=== PATIENT | male | born 1960 | race Caucasian/White ===

== ENCOUNTER → 2020-02-28 13:28 | Outpatient (REF) | payer OTHER, SELFPAY | LOC: HO.SL 13:28 | PROVIDERS: Visit Provider Internal Medicine | DX: G47.33 Obstructive sleep apnea (adult) (pediatric) (principal) ==

== ENCOUNTER → 2020-03-20 13:39 | Outpatient (REF) | payer OTHER, SELFPAY | LOC: HO.SL 13:39 | PROVIDERS: Visit Provider Internal Medicine | DX: Z13.89 Encounter for screening for other disorder (principal) ==

== ENCOUNTER → 2020-07-19 13:37 | Outpatient (REF) | payer OTHER, SELFPAY | LOC: HO.SL 13:37 | PROVIDERS: Visit Provider Internal Medicine | DX: G47.33 Obstructive sleep apnea (adult) (pediatric) (principal) | CPT/HCPCS: 95806 ==

== ENCOUNTER → 2020-08-30 15:52 | Outpatient (BNVA) | payer OTHER, SELFPAY | PROVIDERS: PCP Registered Nurse; Visit Provider Internal Medicine | DX: J45.909 Unspecified asthma, uncomplicated (principal); G47.33 Obstructive sleep apnea (adult) (pediatric); Z99.89 Dependence on other enabling machines and devices; Z79.899 Other long term (current) drug therapy | CPT/HCPCS: 99212 ==

== ENCOUNTER 2021-02-05 10:21 | Outpatient (REF) | payer OTHER, SELFPAY ==
--- NOTE | 2021-02-05 15:25 | MHC.AU.ANR ---
Adult Audiological Evaluation Date of Visit: 02/05/21 Reason for Appointment: Audiological evaluation due to concern for decreased hearing. Mr. Walsh reports difficulties hearing and understanding speech. He notes that he has difficulty hearing himself so he speaks very loudly, which bothers others who feel he is yelling. Does patient feel they have a hearing loss?: Yes If Yes, Which Ear?: Both Ears Has hearing been tested previously?: Yes Previous Hearing Test Results: Patient reports that he had a hearing evaluation ~4 years ago and was told his hearing is normal. Hearing Handicap Inventory: HHIE SCORE: 20 Based on HHIE score, patient has: Mild to moderate perceived hearing handicap Medical History: Medical History: Blood Disorders, High Blood Pressure Medical History (Other): Breathing difficulties, lower back pain, dermatitis, allergic rhinitis, asthma Medication List: Sennalax-S 8.6 mg-50 mg, Docusate sodium 100 mg, Betamethasone valerate 0.1%, Sarna original 0.5%, Nitrofurantoin monohyd/m-cryst 100 mg, Cialis 5 mg, Ketoconazole 2%, ProNeb Ultra II, albuterol sulfate 2.5 mg/3 mL, Shingrix 50 mcg/0.5 mL, ibuprofen 600 mg, aspirin 81 mg, Proair HFA 90 mcg, Toprol XL 25 mg, Multivitamin 50 plus, Singulair 10 mg, Cetirizine HCl 10 mg, atorvastatin calcium 10 mg, melatonin 3 mg, amlodipine besylate 10 mg, hydrocortisone 1%, Flovent HFA 110 mcg Otoscopy: Right Ear: Unremarkable Left Ear: Unremarkable Tympanometry: Tympanometry performed due to: To assess integrity of the middle ear system Right Ear: Normal Middle Ear System (Type A) Left Ear: Normal Middle Ear System (Type A) Hearing Evaluation: Transducer(s) Used: Insert Earphones, Bone Conduction Method: Conventional Audiometry Stimuli Used: Pure Tones Right Ear: Description of Hearing: Mild sensorineural hearing loss from 250-2000 Hz, sloping to a moderate sensorineural hearing loss from 2976-7451 Hz. Left Ear: Description of Hearing: Mild sensorineural hearing loss from 250-2000 Hz, sloping to a moderate sensorineural hearing loss from 1356-3095 Hz. Speech Recognition Threshold (SRT): Method Used: Monitored Live Voice Stimuli Used: Spondee Words Right Ear: 35 dBHL Left Ear: 25 dBHL Word Discrimination: Method: Recorded Lists Word Lists Used: NU-6 Right Ear: 96% at 75 dBHL Left Ear: 96% at 75 dBHL Recommendations: Audiological re-evaluation in one year. Trial with amplification is recommended. Discussed results and hearing aid candidacy. Mr. Walsh is interested in trying bilateral, rechargeable, SYBIL style hearing aids. Medical clearance from a physician is required before fitting. Once medical clearance is received, prior authorization will be requested from [facility]. Once approved, hearing aids will be ordered. A hearing aid fitting will be scheduled once hearing aids arrive. Diagnosis: Primary Diagnosis: H90.3 Bilateral Sensorineural Hearing Loss Services Performed: Services Performed: Comprehensive Audiological Evaluation (CPT 44272) Tympanometry (CPT 10039) Signature: Provider: Leslie Carrington, CCC-A
--- NOTE | 2021-02-05 16:26 | MHC.AU.HAS ---
Hearing Aid Evaluation Date of Visit: 02/05/21 Historical Information: Description of Hearing: Mild to moderate sensorineural hearing loss bilaterally. Current personal amplification information, if applicable: None Summary: Binaural hearing aids are recommended to help facilitate improved communication given the type and degree of Mr. Walsh's hearing loss. Discussed hearing at styles and technologies. Mr. Walsh is interested in rechargeable SYBIL style hearing aids. Hearing Aid Prescription: Based on the individual?s shared listening needs, communication environments, dexterity, desire for connectivity, and personal preferences, the following prescription for amplification has been made: Right ear: Veterinarian Poultry: Phonak Model: Audeo P70-R Battery Size: Rechargeable Color: P6 - Silver Reserve Officer: Size 2 M Type of Dome: Open Left ear: Left ear prescription to be same as Right Hearing Aid above: Veterinarian Poultry: Phonak Model: Audeo P70-R Battery Size: Rechargeable Color: P6 - Silver Reserve Officer: Size 2 M Type of Dome: Open Plan of Care: Action Taken/Action Needed: Prior authorization to be requested. Medical Clearance to be requested from PCP/ENT. Hearing aids will be ordered once PA is approved. Hearing Instrument Fitting to be scheduled when materials arrive. Primary Diagnosis: H90.3 Bilateral Sensorineural Hearing Loss Signature: Provider: Leslie Carrington, CCC-A
--- NOTE | 2021-02-05 16:27 | MHC.AU.MED ---
Medical Clearance for Hearing Instrumentation Date: 02/13/21 Patient Name: Jhon Walsh Date of : 1960 Primary Care Provider: Referring Provider: Earnestine Means NP We have seen your patient on 02/05/21 and have determined that they are a candidate for amplification (See accompanying report). Specifically, they would benefit from: Hearing aid use in both ears There is a statute that addresses Medical Evaluation Requirements prior to fitting a patient with a hearing aid. According to [place] statute 265 CMR:6.03(1), (a) General. Except as provided in 265 CMR 6.03(1)(b), a frame changer shall not sell a hearing aid unless the prospective user has presented to the frame changer a written statement signed by a licensed physician that states that the patient's hearing loss has been medically evaluated and the patient may be considered a candidate for a hearing aid. The medical evaluation must have taken place within the preceding six months. Please note: Due to the [place] Statute referenced above, we cannot accept a signature other than that of a licensed physician. BOX SPINNER and PA signatures cannot be accepted. I am in agreement with the above recommendation. There is no medical contraindication for hearing instrumentation. Physician Signature Date Physician Name (Printed)
== END 2021-02-05 10:22 | disposition home or self-care (01) ==
LOC: HO.SH 10:21
PROVIDERS: Visit Provider Registered Nurse Community Health
DX: Z46.1 Encounter for fitting and adjustment of hearing aid (principal); H90.3 Sensorineural hearing loss, bilateral
CPT/HCPCS: 92557; 92567; 92591

== ENCOUNTER 2021-03-21 14:21 | Outpatient (REF) | payer OTHER, SELFPAY | END 2021-03-21 14:22 | disposition home or self-care (01) | LOC: HO.HAP 14:21 | PROVIDERS: Visit Provider Registered Nurse | DX: Z46.1 Encounter for fitting and adjustment of hearing aid (principal); H90.3 Sensorineural hearing loss, bilateral | CPT/HCPCS: V5011; V5020; V5160; V5261 ==

== ENCOUNTER 2021-04-16 14:05 | Outpatient (REF) | payer OTHER, SELFPAY | END 2021-04-16 14:06 | disposition home or self-care (01) | LOC: HO.HAP 14:05 | PROVIDERS: Visit Provider Registered Nurse | DX: Z13.89 Encounter for screening for other disorder (principal) ==

== ENCOUNTER → 2022-01-29 10:36 | Outpatient (BNVA) | payer OTHER, SELFPAY | PROVIDERS: PCP Registered Nurse; Visit Provider Nurse Practitioner Family | DX: Z01.818 Encounter for other preprocedural examination (principal) | CPT/HCPCS: 99202 ==

== ENCOUNTER 2022-12-12 11:05 | Outpatient (REF) | payer OTHER, SELFPAY ==
--- NOTE | ~2022-12-12 | XR_ITS ---
EXAMINATION: XR LUMBOSACRAL SPINE WITH OBLIQUES CLINICAL INFORMATION: Bilateral low back pain with right-sided sciatica. COMPARISON: None available. TECHNIQUE: AP, both oblique, and lateral views of the lumbar spine. Lateral view of the lumbosacral junction. FINDINGS: Mild lumbar levoscoliosis is seen with apex at L3. Mild multilevel degenerative disc disease is seen most pronounced at L4-L5 and L5-S1 with disc space narrowing and marginal osteophyte formation. Transitional anatomy is seen. There is no acute fracture. The soft tissues are unremarkable. XR/XR lumbar spine 4V min IMPRESSION: 1. Mild lumbar levoscoliosis and mild multilevel degenerative disc disease. No acute abnormality.
== END 2022-12-12 11:06 | disposition home or self-care (01) ==
LOC: HO.HHCX 11:05
PROVIDERS: Visit Provider Internal Medicine
DX: M54.41 Lumbago with sciatica, right side (principal)
CPT/HCPCS: 72110

== ENCOUNTER 2023-01-07 14:23 | Outpatient (RCR) | payer OTHER, SELFPAY | END 2023-02-03 10:43 | disposition home or self-care (01) | LOC: HO.PT 14:23 | PROVIDERS: PCP Student in an Organized Health Care Education/Training Program; Visit Provider Internal Medicine | DX: M54.41 Lumbago with sciatica, right side (principal) | CPT/HCPCS: 97161 ==

== ENCOUNTER 2023-05-15 09:42 | Outpatient (REF) | payer OTHER, SELFPAY ==
[2023-05-15 12:01] LABS: Estimated Average Glucose 108 mg/dL; Hemoglobin A1c % 5.4 % (<6.0)
[2023-05-15 12:17] LABS: Alanine Aminotransferase 29 U/L (0-40); Albumin Level 4.5 g/dL (3.5-5.0); Alkaline Phosphatase 38 U/L (39-117); Anion Gap 11 (12-20); Aspartate Amino Transferase 25 U/L (5-37); Bilirubin Total 0.5 mg/dL (0.0-1.0); Blood Urea Nitrogen 18 mg/dL (9-16); Carbon Dioxide 27 mmol/L (22-29); Chloride 103 mmol/L (96-108); Cholesterol 121 mg/dL (<200); Estimated Glomerular Filt Rate > 60; Glucose Random 87 mg/dL (60-115); HDL Cholesterol 46 mg/dL (>40); LDL Cholesterol Calculated 50 mg/dL (<100); Potassium 4.3 mmol/L (3.3-5.1); Sodium 137 mmol/L (135-145); Triglycerides 125 mg/dL (<150)
== END 2023-05-15 09:43 | disposition home or self-care (01) ==
LOC: HO.HHCL 09:42
PROVIDERS: Visit Provider Nurse Practitioner Family
DX: E78.2 Mixed hyperlipidemia (principal); Z87.898 Personal history of other specified conditions
CPT/HCPCS: 36415; 80053; 80061; 83036

== ENCOUNTER 2024-03-10 11:09 | Outpatient (REF) | payer OTHER, SELFPAY ==
[2024-03-10 14:43] LABS: Alanine Aminotransferase 33 U/L (0-40); Albumin Level 4.4 g/dL (3.5-5.0); Alkaline Phosphatase 52 U/L (39-117); Anion Gap 12 (12-20); Aspartate Amino Transferase 38 U/L (5-37); Bilirubin Total 0.6 mg/dL (0.0-1.0); Blood Urea Nitrogen 17 mg/dL (9-16); Calcium 10.2 mg/dL (8.4-10.2); Carbon Dioxide 25 mmol/L (22-29); Chloride 103 mmol/L (96-108); Cholesterol 106 mg/dL (<200); Estimated Glomerular Filt Rate > 60; Glucose Random 98 mg/dL (60-115); HDL Cholesterol 44 mg/dL (>40); LDL Cholesterol Calculated 43 mg/dL (<100); Potassium 4.4 mmol/L (3.3-5.1); Sodium 136 mmol/L (135-145); TSH reflex Free T4 1.56 uIU/mL (0.32-4.0); Total Protein 7.7 g/dL (6.5-8.0); Triglycerides 95 mg/dL (<150); Vitamin D 25-OH Total 43.5 ng/mL (>30)
[2024-03-10 18:13] LABS: Reflex LDLD? No
[2024-03-11 08:24] LABS: Syphilis Screen Nonreactive (Nonreactive)
[2024-03-11 08:27] LABS: Hepatitis A Antibody IgM 0.17 Index (0-0.79); ~Hepatitis A Antibody IgM Nonreactive (Nonreactive)
[2024-03-11 08:53] LABS: HBS Num1 0.78 mIU/mL (0-7.99); HBc Num1 0.13 S/CO (0.00-0.79); HIV AB/AG Nonreactive (Nonreactive); HIV Num 1 0.06 S/CO (0.00-0.99); Hepatitis B Core Antibody Nonreactive (Nonreactive); Hepatitis B Surface Antigen Negative (Negative); ~HepC Num1 0.14 S/CO (0.00-0.79); ~Hepatitis B Surface Antibody NONREACTIVE (Nonreactive); ~Hepatitis C Antibody Nonreactive (Nonreactive)
[2024-03-13 03:24] LABS: TS Negative Control Passed; TS Panel A 0; TS Panel B 0; TS Positive Control Passed; TSpotTB Negative (Negative)
== END 2024-03-10 11:10 | disposition home or self-care (01) ==
LOC: HO.HHCL 11:09
PROVIDERS: Visit Provider Internal Medicine
DX: Z00.00 Encounter for general adult medical examination without abnormal findings (principal); I10 Essential (primary) hypertension
CPT/HCPCS: 36415; 80053; 80061; 82306; 84443; 86481; 86704; 86706; 86709; 86780; 86803; 87340; 87389

== ENCOUNTER 2024-03-30 11:24 | Emergency (ER) | payer OTHER, SELFPAY ==
[2024-03-30 12:15] VITALS: BP 118/70; PULSE 70; RESP 19; TEMP 36.6; O2SAT 98; BMI 28.5
--- NOTE | 2024-03-30 12:18 | ED.GENADULT ---
HPI - General Adult General Chief complaint: Wound/Laceration Stated complaint: Left Index Finger Lac S/P Injury Time Seen by Provider: 03/30/24 14:59 Source: patient and RN notes reviewed Mode of arrival: ambulatory Limitations: no limitations History of Present Illness ED Provider: Teresa Mejia PA-C HPI narrative: This is a 63-year-old male who presents emergency department with complaints of laceration to left 2nd digit which occurred last night. Patient states that he was picking up glass off the ground when he suddenly accidentally lacerated his left 2nd digit. He is left-hand dominant. He received his Tdap 1 week ago through his primary care. No numbness or tingling. No weakness. Denies any fevers or chills. No other complaints or concerns at this time. MD complaint: Laceration Onset (ago): hour(s) Location: upper extremity Radiation: non-radiation Severity: moderate Relieving factors: none Exacerbating factors: none Associated symptoms: denies other symptoms Treatments prior to arrival: none Related Data Home Medications ?Medication ?Instructions ?Recorded ?Confirmed albuterol sulfate 2.5 mg/3 mL mg inhalation TID PRN Wheezing 08/30/20 (0.083 %) solution for nebulization albuterol sulfate 90 mcg/actuation 2,000,000 mcg PO Q6H PRN Wheezing 08/30/20 06/12/22 aerosol inhaler amlodipine 5 mg tablet 5 mg PO DAILY 08/30/20 06/12/22 aspirin 81 mg tablet,delayed 81 mg PO DAILY 08/30/20 06/12/22 release atorvastatin 10 mg tablet 10 mg PO DAILY 08/30/20 06/12/22 cetirizine 10 mg tablet 10 mg PO DAILY 08/30/20 06/12/22 escitalopram oxalate 5 mg tablet 5 mg PO DAILY 08/30/20 06/12/22 fluticasone propionate 110 0 mcg inhalation 08/30/20 mcg/actuation HFA aerosol inhaler metoprolol succinate 25 mg 25 mg PO DAILY 08/30/20 06/12/22 tablet,extended release 24 hr mirtazapine 7.5 mg tablet 7.5 mg PO BEDTIME 08/30/20 06/12/22 montelukast 10 mg tablet 10 mg PO BEDTIME 08/30/20 06/12/22 pvyzpicpxfbq-zwvfkxeq-mxkbmx tablet 0 tab PO 08/30/20 trazodone 50 mg tablet 50 mg PO BEDTIME 08/30/20 06/12/22 Previous Rx's ?Medication ?Instructions ?Recorded bisacodyl 5 mg tablet,delayed 10 mg (2 x 5 mg) PO ONCE 1 day #2 01/29/22 release (Dulcolax (bisacodyl)) tabs polyethylene glycol 3350 17 238 g PO ONCE #238 grams 01/29/22 gram/dose oral powder (Miralax) amoxicillin 875 mg-potassium 1 tab PO BID 7 days #14 tabs 03/30/24 clavulanate 125 mg tablet Allergies Allergy/AdvReac Type Severity Reaction Status Date / Time seafood Allergy Hives, Verified 03/30/24 12:16 itching Review of Systems Review of Systems: Yes all other systems are reviewed and are negative Constitutional: Constitutional: Reports as per [facility] Past Medical History Medical History (Updated 03/31/24 @ 00:01 by John Bray) On beta ryan at home Learning disabilities Varicose veins of both lower extremities Chronic back pain Allergic rhinitis HTN (hypertension) JACK on CPAP Asthma Surgical History (Updated 06/12/22 @ 16:13 by Rita Locke RN) Hx of right inguinal hernia repair Social History Social History Advance Directives: No Advance Directives Information Provided: Yes Do you have a plan to hurt others: No Plan Physical Exam ED Vital Signs: Vital Signs - 24 hr 03/30/24 12:15 03/30/24 17:16 Temperature 98 F 98 F Pulse Rate 70 70 Respiratory Rate 19 19 Blood Pressure 118/70 118/70 Pulse Oximetry 98 98 BMI result Body Mass Index 28.5 Const General: cooperative, comfortable and no acute distress Orientation/consciousness: patient oriented x3 Limitations: no limitations HENMT Head: Yes normal to inspection, Yes normocephalic and Yes atraumatic Ears: hearing grossly normal bilaterally General nose exam: Normal external nose present Face and sinus: Yes normal facial exam Mouth: Normal oral and palatal mucosa present, oropharynx normal and moist mucous membranes Throat: Yes posterior oropharynx normal Eyes General: appearance normal, both eyes and all related structures Eyelids: Yes eyelids normal Conjunctivae: conjunctivae normal Sclerae: sclerae normal Pupils: Equal, round and reactive pupils present EOM: EOMs intact bilaterally Neck Neck: Yes normal visual inspection, Yes full ROM and Yes no lymphadenopathy Lymphatic: no lymphadenopathy noted Chest Chest palpation & inspection: normal inspection of the chest Resp Effort & Inspection: normal respiratory effort and able to speak in complete sentences Auscultation: clear to auscultation bilaterally, no crackles, no rales, no rhonchi and no wheezes Cardio Rate: regular rate Rhythm: regular rhythm Heart sounds: S1 normal heart sound present and S2 normal heart sound present GI Inspection: Yes normal to inspection Skin Other: Left 2nd digit, lateral aspect, there is a partial-thickness laceration measuring approximately 2-1/2 cm, no active bleeding. No surrounding warmth or erythema noted. Full ROM of the digit without difficulty. Sensation intact. General skin exam: no rashes or lesions noted Neuro General: patient oriented x3 and moves all extremities Cranial nerves: Yes Equal, round and reactive pupils present Extrem General: Yes normal to inspection Right upper extremity: normal to inspection Left upper extremity: normal to inspection Right lower extremity: normal to inspection Left lower extremity: normal to inspection Course Course Course Narrative: RME: 62-year-old male presents to ED for left index laceration since yesterday. Patient cut his finger with glass. Patient will be evaluated in [facility]. Patient not any blood thinners Medications Administered Discontinued Medications Generic Name Dose Route Start Last Admin Trade Name Freq PRN Reason Stop Dose Admin Lidocaine HCl 5 ml 03/30/24 15:35 03/30/24 16:27 Lidocaine Hcl 1 % Mpf 5 Ml Vial SUBCUT 03/30/24 15:36 5 ml ONCE ONE Administration Medical Decision Making Medical Decision Making [facility] Narrative: This is a 63-year-old male who presents emergency department with complaints of left 2nd digit laceration which occurred last night. On arrival, vital signs within normal limits. He is speaking full sentences under no acute distress. Wound is already healing, and is just about 24 hours old. Wound soaked with betadine and steristrips applied to wound. good wound approximation. Treated prophylactically with abx. Given wound care instructions. He understands and agrees with plan. Stable for d/c. Differential Diagnosis Differential Diagnoses: The differential diagnosis associated with the presentation includes Laceration, puncture wound, foreign body Radiology Impression Discussion of test interpretation with radiology: I have reviewed the radiologist's reading. Discharge Plan Discharge Clinical Impression: Laceration of finger Patient Disposition: Home, Self-Care Instructions: Laceration (ED), Laceration Without Closure (ED) Additional Instructions: You were seen in the emergency department due to a laceration to your finger. Your laceration was too old to close and was already in the process of healing. Please keep wound clean and dry. Do not submerge wound. Do not pick at wound. Take ibuprofen and or Tylenol as needed for pain and symptoms. Watch for any signs of infection including but not limited to increased redness, pain, fevers, chills, swelling of the area. I am starting you on antibiotics, please take as prescribed. Finish the entire course even if your symptoms improve. Prescriptions: New amoxicillin-pot clavulanate 875-125 mg tablet 1 tab PO BID 7 Days Qty: 14 0RF No Action Cerovite Senior Tablet 0 tab PO cetirizine 10 mg tablet 10 mg PO DAILY metoprolol succinate 25 mg tablet extended release 24 hr 25 mg PO DAILY mirtazapine 7.5 mg tablet 7.5 mg PO BEDTIME escitalopram oxalate 5 mg tablet 5 mg PO DAILY trazodone 50 mg tablet 50 mg PO BEDTIME Flovent HFA 110 mcg/actuation HFA aerosol inhaler 0 mcg inhalation albuterol sulfate 90 mcg/actuation HFA aerosol inhaler 2,000,000 mcg PO Q6H PRN (Reason: Wheezing) aspirin 81 mg tablet,delayed release (DR/EC) 81 mg PO DAILY amlodipine 5 mg tablet 5 mg PO DAILY montelukast 10 mg tablet 10 mg PO BEDTIME atorvastatin 10 mg tablet 10 mg PO DAILY albuterol sulfate 2.5 mg /3 mL (0.083 %) solution for nebulization inhalation TID PRN (Reason: Wheezing) bisacodyl [Dulcolax (bisacodyl)] 5 mg tablet,delayed release (DR/EC) 10 mg PO ONCE 1 Days Qty: 2 0RF Rx Instructions: take 2 tabs at noon the day before your colonoscopy polyethylene glycol 3350 [Miralax] 17 gram/dose powder 238 g PO ONCE Qty: 238 0RF Rx Instructions: As directed by gastroenterology department at [facility] Interventions: ED Discharge Assessment Last Done: 03/30/24 17:16 Discharge Date/Time: 03/30/24 17:17 Print Language: Bengali
[2024-03-30] MEDS: Lidocaine HCl 1 % MPF 5 ML VIAL SUBCUT (16:27)
[2024-03-30 17:16] VITALS: BP 118/70; PULSE 70; RESP 19; TEMP 36.6; O2SAT 98
== END 2024-03-30 17:17 | disposition home or self-care (01) ==
PROVIDERS: Emergency Provider Student in an Organized Health Care Education/Training Program
DX: S61.211A Laceration without foreign body of left index finger without damage to nail, initial encounter (principal); W25.XXXA Contact with sharp glass, initial encounter; Y93.89 Activity, other specified; Y92.89 Other specified places as the place of occurrence of the external cause; Y99.8 Other external cause status; Z79.899 Other long term (current) drug therapy
CPT/HCPCS: 99282; 99284; J2003

== ENCOUNTER 2024-07-28 10:46 | Outpatient (REF) | payer OTHER, SELFPAY ==
[2024-07-28 13:25] LABS: MANUAL DIFF FLAG NO
[2024-07-28 13:32] LABS: Basophils Absolute Auto 0.1 X10*3/uL (0.0-0.2); Basophils Percent Auto 1.5 % (0-2); Eosinophils Absolute Auto 0.3 X10*3/uL (0.0-0.4); Eosinophils Percent Auto 4.6 % (0-4); Hematocrit 39.4 % (42.0-52.0); Hemoglobin 12.9 g/dl (14.0-18.0); Imm Gran Abs Auto 0.01 X10*3/uL (0.00-0.03); Imm Gran Pct Auto 0.1 % (0.0-0.4); Lymphocytes Absolute Auto 1.4 X10*3/uL (1.2-4.9); Lymphocytes Percent Auto 21.3 % (20-40); Mean Corpuscular HGB Conc 32.7 g/dl (31.0-36.0); Mean Corpuscular Hemoglobin 28.4 pg (27.0-33.0); Mean Corpuscular Volume 86.8 fL (80.0-98.0); Mean Platelet Volume 9.9 fL (9.4-12.4); Monocytes Absolute Auto 0.6 X10*3/uL (0.1-1.2); Monocytes Percent Auto 9.4 % (2-11); Neutrophils Absolute Auto 4.2 x10*3/uL (2.0-8.3); Neutrophils Percent Auto 63.1 % (45-73); Platelet Count 356 X10*3/uL (160-400); Red Blood Count 4.54 X10*6/uL (4.60-5.80); Red Cell Distribution Width 12.3 % (11.0-16.0); White Blood Count 6.7 X10*3/uL (4.8-10.8)
--- OUTSIDE RECORDS SUMMARY | 2024-07-28 13:42 | XMS_ITS | Encounter Summary ---
Author Organization [facility] Address [address] [place] [address] [address] [place] [address] Care Team Providers Care Renal Dialysis Technician Name Role Phone Breann Seay Primary Care Provider [phone] Joan Ayala MD Primary Care Provider + Reason for Visit * Reason Comments Med Refill Encounter Details Date Type Department Care Team (Late st Contact Info) Description 10/01/[address] [facility] [address] [place] [address] Breann Seay FNP [address] [place] [address] Chronic bilateral low back pain without sciatica; Moderate persistent asthma without complication Social History Tobacco Use Types Packs/Day Years Used Date Smoking Tobacco: Never Smokeless Tobacco: Never Alcohol Use Standard Drinks/Week Comments Not Currently 0 (1 standard drink = 0.6 oz pur e alcohol) Depression Answer Date Recorded Patient Health Questionnaire-9 Score 0 07/02/2022 Depression Answer Date Recorded Patient Health Questionnaire-2 Score 0 07/02/2022 Sex and Gender Information Value Date Recorded Sex Assigned at Male 03/17/2022 10:20 AM EDT Legal Sex Male 10:20 AM EDT Gender Identity Male 03/17/2022 10:20 AM EDT Sexual Orientation Straight 03/17/2022 10 :20 AM EDT documented as of this encounter Plan of Treatment Not on file documented as of this encounter Visit Diagnoses Diagnosis Chronic bilateral low back pain without sciatica Moderate persistent asthma without complication documented in this encounter Additional Health Concerns Assessment Noted Time PHQ-9 Depression Total Score: 0 07/02/19 9:26 AM EST documented as of this encounter Care Teams Renal Dialysis Technician Relationship Specialty Start Date End Date Breann Seay FNP [address] [place] [address] PCP - General Family Medicine 05/30/22 01/18/24 Joan Ayala MD [address] [place] [address] PCP - General Internal Medicine 01/19/24 documented as of this encounter
--- OUTSIDE RECORDS SUMMARY | 2024-07-28 13:42 | XMS_ITS | Encounter Summary ---
Author Organization [employer] Address [address] [facility] [address] [place] [address] Care Team Providers Care Head Miller Name Role Phone Joan Ayala MD Primary Care Provider + Reason for Visit * Reason Comments Med Refill Encounter Details Date Type Department Care Team ([facility] st Contact Info) Description 07/22/2024 Refill [facility] [address] [place] [address] Joan Ayala MD [address] [place] [address] Other male erectile dysfunction Social History Tobacco Use Types Packs/Day Years Used Date Smoking Tobacco: Never Passive Smoke Exposure: Never Smokeless Tobacco: Never Alcohol Use Standard Drinks/Week Comments Not Currently 0 (1 standard drink = 0.6 oz pur e alcohol) Depression Answer Date Recorded Patient Health Questionnaire-9 Score 0 10/19/2023 Patient Health Questionnaire-9 Score 0 10/19/2023 Last PHQ-9: Questionnaire Data Not on file 0 10/19/2023 Housing Stability Answer Date Recorded What is your housing situation today? I have oh walsh 07/20/[address] you li ve. Do you have problems with any of the following? None of the above 07/20/2023 Food Insecurity Answer Date Recorded Within the past 12 months, y ou worried that your food would run out before you got money to buy more: Never True 07/20/2023 Within the past 12 months,th e food you bought just didn't last and you didn't have enough money to get more: Never True 08/2023 Transportation Answer Date Recorded In the past 12 months, has l ack of transportation kept you from medical appts, meetings, work or from getting things needed for daily living? No 07/20/2023 Utilities Answer Date Recorded In the past 12 months, has t he electric, gas, oil or water company threatened to shut off services in your home? No 07/20/2023 Depression Answer Date Recorded Patient Health Questionnaire-2 Score 0 10/19/2023 Sex and Gender Information Value Date Recorded Sex Assigned at Male 03/17/2022 10:20 AM EDT Legal Sex Male 10:20 AM EDT Gender Identity Male 03/17/2022 10:20 AM EDT Sexual Orientation Straight 03/17/2022 10 :20 AM EDT documented as of this encounter Plan of Treatment Not on file documented as of this encounter Visit Diagnoses Diagnosis Other male erectile dysfunction documented in this encounter Additional Health Concerns Assessment Noted Time PHQ-9 Depression Total Score: 0 10/19/19 11:47 AM EDT documented as of this encounter Care Teams Head Miller Relationship Specialty Start Date End Date Joan Ayala MD [address] [place] [id number] PCP - General Internal Medicine 01/19/24 documented as of this encounter
--- OUTSIDE RECORDS SUMMARY | 2024-07-28 13:42 | XMS_ITS | Encounter Summary ---
Author Organization [employer] Address [address] [facility] 7[address] [place] [address] Care Team Providers Care Mixer Foam Rubber Name Role Phone Joan Ayala MD Primary Care Provider + Reason for Visit * Reason Comments Weight Loss Encounter Details Date Type Department Care Team ([facility] Contact Info) Description 07/15/2024 3:00 PM EST Office Visit [facility] [address] [place], [place] [phone] Citlalli Will NP [address] [place] [address] Cough in adult patient (Primary Dx); Weight loss Social History Tobacco Use Types Packs/Day Years [...] AM EDT documented as of this encounter Last Filed Vital Signs Vital Sign Reading Time Taken Comments Blood Pressure 132/73 07/15/2024 3:06 PM EST Pulse 76 07/15/2024 3:06 PM EST Temperature 36.1 ??C (96.9 ??F) 07/15/2024 3:06 PM ES T Respiratory Rate 19 07/15/2024 3:06 PM EST Oxygen Saturation 98% 07/15/2024 3:06 PM EST Inhaled Oxygen Concentration - - Weight 95.3 kg (210 lb) 07/15/2024 3:06 PM EST Height 185.4 cm (6' 1 ) 07/15/2024 3:06 PM EST Body Mass Index 27.71 07/15/2024 3:06 PM EST documented in this encounter Progress Notes * Citlalli Will NP - 07/15/2024 3:00 PM EST SUBJECTIVE: Jhon Walsh is a 63 y.o. male with past medical history significant for asthma, hypertension obesity, low back pain [facility] for a sick visit. Denies recent illness, injury, or hospitalization. HPI Jhon expresses concern for weight loss as well as desire to be tested for viral illness due to increased cough in the last 2 days. He denies rhinorrhea, sore throat, fever, chills, shortness of breath. Reports once a day use of prescribed asthma medications. He is unsure the name of his maintenance inhaler but points to the medication Alvesco on the chart located in exam room. He reports starting weight of 220 pounds approximately 2 months ago, and he currently weighs to 10 pounds. States prior to her weight loss he has been walking more than before, exercising more, and receiving a healthy [facility] [employer]. He denies abdominal pain, chest palpitations, night sweats or changes in stool habits and the color is brown. He is not sexually active and never smoked. Review of Systems Constitutional: Positive for unexpected weight change. Negative for chills and fever. HENT: Negative. Negative for congestion and sore throat. Eyes: Negative for discharge. Respiratory: Positive for cough. Negative for chest tightness and shortness of breath. Cardiovascular: Negative for chest pain and palpitations. Gastrointestinal: Negative. Negative for abdominal pain, constipation, diarrhea and nausea. Genitourinary: Negative. Negative for difficulty urinating. Musculoskeletal: Negative. Negative for arthralgias and myalgias. Skin: Negative for rash. Neurological: Negative. Negative for dizziness, speech difficulty, light- headedness and headaches. Hematological: Negative. Psychiatric/Behavioral: Negative for behavioral problems, self-injury and suicidal ideas. The patient is not nervous/anxious. OBJECTIVE: Visit Vitals BP 132/73 (BP Location: Right arm, Patient Position: Sitting, BP Cuff Size: Large adult) Pulse 76 Temp 96.9 ??F (36.1 ??C) (Temporal) Resp 19 Ht 6' 1 (1.854 m) Wt 210 lb (95.3 kg) SpO2 98% BMI 27.71 kg/m?? Smoking Status Never BSA 2.22 m?? Patient Active Problem List Diagnosis Frequency of urination Abnormal gait Allergic rhinitis Angina pectoris (CMS/HCC) Asthma Chest discomfort Acute low back pain Chronic pruritus Class 1 obesity Claw toe Dyspnea on exertion Essential hypertension Obstructive sleep apnea syndrome Varicose veins of lower extremity Other male erectile dysfunction Contact dermatitis Hypercalcemia Acute bilateral low back pain Encounter for preventive health examination Screening examination for STD (sexually transmitted disease) Office Visit on 07/15/2024 Component Date Value Ref Range Status Rapid COVID Ag 07/15/2024 Negative Final QC Media Lot # 07/15/2024 [id number] Final Lot# Expiration Date 07/15/2024 71,826 Final Influenza A 07/15/2024 Negative Negative, Indeterminate Final QC Media Lot # 07/15/2024 [id number] Final Lot# Expiration Date 07/15/2024 10,826 Corrected Influenza B 07/15/2024 Negative Negative, Indeterminate Final QC Media Lot # 07/15/2024 [id number] Final Lot# Expiration Date 07/15/2024 10,826 Final Physical Exam Vitals reviewed. Constitutional: General: He is not in acute distress. Appearance: Normal appearance. He is not ill-appearing. HENT: Head: Normocephalic and atraumatic. Right Ear: External ear normal. Left Ear: External ear normal. Nose: Nose normal. Mouth/Throat: Dentition: Abnormal dentition. Pharynx: Uvula midline. No uvula swelling or postnasal drip. Eyes: General: No scleral icterus. Extraocular Movements: Extraocular movements intact. Cardiovascular: Rate and Rhythm: Normal rate and regular rhythm. Pulses: Normal pulses. Heart sounds: Normal heart sounds. Pulmonary: Effort: Pulmonary effort is normal. No respiratory distress. Breath sounds: Normal breath sounds. Musculoskeletal: General: Normal range of motion. Cervical back: Normal range of motion and neck supple. Lymphadenopathy: Cervical: No cervical adenopathy. Neurological: General: No focal deficit present. Mental Status: He is alert and oriented to person, place, and time. Gait: Gait normal. Psychiatric: Mood and Affect: Mood normal. Behavior: Behavior normal. Assessment/Plan Diagnoses and all orders for this visit: Cough in adult patient Comments: -POCT completed per patient request; negative findings -Suspect cough due to poorly controlled asthma; medication list indicates he was prescribed Advair inhaler. Frequency and proper use of the medication is reviewed -He is also encouraged to take cetirizine previously prescribed -He is informed of an attempt made to schedule him follow-up with PCP to assess asthma control. A follow-up will be scheduled for him today Orders: - POCT Rapid Covid-19 BinaxNOW - POCT Rapid Influenza A ESPINAL ID NOW - POCT Rapid Influenza B ESPINAL ID NOW Weight loss Comments: -Patient is not ill-appearing nor does he appear to be malnourished -documented weight loss based on clinic weights is approximately 3 pounds from March 2024 till today -Discussed decreasing weight likely due to recent lifestyle change -Colonoscopy was completed in 2021; HIV and TB testing completed 03/10 for without abnormal resultsfurther supporting the likelihood of his weight loss being due to lifestyle change -Repeat CMP and thyroid function test to evaluate for change Orders: - TSH W/Reflex to FT4; Future - Comprehensive Metabolic Panel; Future Follow-up: routine care with PCP or sooner as needed Latvian Translation: Provided by [facility] staff member KAYKAY Herrera documented in this encounter Plan of Treatment Scheduled Orders Name Type Priority Associated Diagnoses Orde r Schedule TSH W/Reflex to FT4 Lab Routine Weight loss Expected: 07/15/2024 (Approximate), Expires: 07/15/2025 Comprehensive Metabolic Panel Lab Routine Weight loss Expected: 07/15/2024 (Approximate), Expires: 07/15/2025 documented as of this encounter Procedures Procedure Name Priority Date/Time Associated Diagnosis Comments POCT INFLUENZA B (ID NOW RAPID MOLECULAR) Routine 07/15/2024 4:10 PM EST Cough in adult patient POCT INFLUENZA A (ID NOW RAPID MOLECULAR) Routine 07/15/2024 4:09 PM EST Cough in adult patient POCT RAPID COVID ANTIGEN Routine 07/15/2024 4:05 PM EST Cough in adult patient documented in this encounter Results * POCT Rapid Influenza B ESPINAL ID NOW (07/15/2024 4:10 PM EST) Influenza B Negative Negative, Indeterminate [facility] QC Media Lot # [id number] [facility] Lot# Expiration Date [facility] Swab 07/15/2024 4:10 PM EST us Citlalli Will NP POINT OF CARE TEST ENTER/EDIT O RDERABLES Final Result [facility] [address] [place] [address] [phone] * POCT Rapid Influenza A ESPINAL ID NOW (07/15/2024 4:09 PM EST) Influenza A Negative Negative, Indeterminate [facility] QC Media Lot # [id number] [facility] Lot# Expiration Date [facility] Swab 07/15/2024 4:09 PM EST us Citlalli Appram [address] [facility] POINT OF CARE TEST ENTER/EDIT O RDERABLES Edited Result - Final [facility] [address] [place] [address] [phone] * POCT Rapid Covid-19 BinaxNOW (07/15/2024 4:05 PM EST) Rapid COVID Ag Negative QC Media Lot # [id number] Lot# Expiration Date Swab 07/15/2024 4:05 PM EST us Citlalli Appram [address] [facility] POINT OF CARE TEST ENTER/EDIT O RDERABLES Final Result documented in this encounter Visit Diagnoses Diagnosis Cough in adult patient- Primary Weight loss Loss of weight documented in this encounter Additional Health Concerns Assessment Noted Time PHQ-9 Depression Total Score: 0 10/19/19 24 11:47 AM EDT documented as of this encounter Care Teams Mixer Foam Rubber Relationship Specialty Start Date End Date Joan Ayala MD [address] [place] [address] PCP - General Internal Medicine 01/19/24 documented as of this encounter
--- OUTSIDE RECORDS SUMMARY | 2024-07-28 13:43 | XMS_ITS | Encounter Summary ---
Author Organization [employer] [facility] Address [address] [place] [address] [address] [place] [address] Care Team Providers Care Toll Collector Supervisor Name Role Phone Breann Seay Primary Care Provider [phone] Joan Ayala MD Primary Care Provider + Reason for Referral * Consultation (Routine) - Canceled Specialty Diagnoses / Procedures Referred By Miguel peralta Referred To Contact Podiatry Diagnoses History of onychomycosis Breann Seay FNP [address] [place] [address] Phone: tel: fax: Referral ID Status Reason Start Date Expiration Date Visits Requested Visits Authorized [id number] Canceled Specialty Services Required 08/25/2023 08/24/2024 1 1 Encounter Details Date Type Department Care Team (Late st Contact Info) Description 08/25/2023 Orders Only [facility] [address] [place] [address] Breann Seay FNP [address] [place] [address] History of onychomycosis (Primary Dx) Social History Tobacco Use Types Packs/Day Years Used Date Smoking Tobacco: Never Passive Smoke Exposure: Never Smokeless Tobacco: Never Alcohol Use Standard Drinks/Week Comments Not Currently 0 (1 standard drink = 0.6 oz pur e alcohol) Depression Answer Date Recorded Patient Health Questionnaire-9 Score 0 07/02/2022 Housing Stability Answer Date Recorded What is [...] as of this encounter Plan of Treatment Scheduled Referrals Name Type Priority Associated Diagnoses Orde r Schedule Referral to Podiatry Outpatient Referral Routine History of onychomycosis Expected: 08/25/2023 (Approximate), Expires: 08/24/2024 documented as of this encounter Visit Diagnoses Diagnosis History of onychomycosis- Primary documented in this encounter Additional Health Concerns Assessment Noted Time PHQ-9 Depression Total Score: 0 07/02/19 23 9:26 AM EST documented as of this encounter Care Teams Toll Collector Supervisor Relationship Specialty Start Date End Date Breann Seay FNP [address] [place] [address] PCP - General Family Medicine 05/30/22 01/18/24 Joan Ayala MD [address] [place] [address] PCP - General Internal Medicine 01/19/24 documented as of this encounter
--- OUTSIDE RECORDS SUMMARY | 2024-07-28 13:43 | XMS_ITS | Encounter Summary ---
Author Organization [employer] Address [address] [facility] 7t [place] [address] Care Team Providers Care Cardiograph Operator Name Role Phone Joan Ayala MD Primary Care Provider + Reason for Visit * Reason Comments Med Refill Encounter Details Date Type Department Care Team ([facility] st Contact Info) Description 05/27/2024 Refill C [facility] [address] [place] [address] Breann Seay FNP [address] [place] [address] Social History Tobacco Use Types Packs/Day Years [...] documented as of this encounter Visit Diagnoses Not on filedocumented in this encounter Additional Health Concerns Assessment Noted Time PHQ-9 Depression Total Score: 0 10/19/19 11:47 AM EDT documented as of this encounter Care Teams Cardiograph Operator Relationship Specialty Start Date End Date Joan Ayala MD [address] [place] [address] PCP - General Internal Medicine 01/19/24 documented as of this encounter
--- OUTSIDE RECORDS SUMMARY | 2024-07-28 13:43 | XMS_ITS | Encounter Summary ---
Author Organization [employer] [facility] Address [address] [place] [address] 7[address] [place] [address] Care Team Providers Care Shop Assistant Name Role Phone Breann Seay Primary Care Provider +-2 Joan Ayala MD Primary Care Provider + Reason for Visit * Reason Comments Med Refill Encounter Details Date Type Department Care Team (Late st Contact Info) Description 11/13/2022 Refill [facility] [address] [place] [address] Kitty Sanders, ANP [address] [place] [address] Social History Tobacco Use Types Packs/Day Years [...] Orientation Straight 03/17/2022 10 :20 AM EDT COVID-19 Exposure Response Date Recorded In the last 10 days, have yo u been in contact with someone who was confirmed or suspected to have Coronavirus/COVID-19? No / Unsure 11/10/2022 10:17 AM EDT documented as of this encounter Plan of Treatment Not on file documented as of this encounter Visit Diagnoses Not on filedocumented in this encounter Additional Health Concerns Assessment Noted Time PHQ-9 Depression Total Score: 0 07/02/19 23 9:26 AM EST documented as of this encounter Care Teams Shop Assistant Relationship Specialty Start Date End Date Breann Seay FNP [address] [place] [address] PCP - General Family Medicine 05/30/22 01/18/24 Joan Ayala MD [address] [place] [address] PCP - General Internal Medicine 01/19/24 documented as of this encounter
--- OUTSIDE RECORDS SUMMARY | 2024-07-28 13:43 | XMS_ITS | Encounter Summary ---
Author Organization [facility] Address [address] [place] [address] 7t [place] [address] Care Team Providers Care White Sourer Name Role Phone Breann Seay Primary Care Provider [phone] Joan Ayala MD Primary Care Provider + Encounter Details Date Type Department Care Team (Late st Contact Info) Description 11/19/2022 Orders Only [facility] [address] [place] [address] Breann Seay FNP [address] [place] [address] Hx of onychomycosis (Primary Dx) Social History Tobacco [...] on file documented as of this encounter Procedures Procedure Name Priority Date/Time Associated Diagnosis Comments XR LUMBAR SPINE COMPLETE 4+ VIEWS Routine 12/12/2022 11:20 AM EDT documented in this encounter Results * XR Lumbar Spine Complete 4+ Views (12/12/2022 11:20 AM EDT) Anatomical Region Laterality Modality Spine, L-spine Radiographic Lorie ging 12/12/2022 11:2 0 AM EDT Narrative 12/12/2022 12:08 PM EDT ?[facility] ?[address] ?[place] [address] ?XRay Report ? Signed ? Patient: Jhon Walsh ?MR#: [id number] ? : 1960 ?Acct:[id number] ? Age/Sex: 61 / M ?ADM Date: 12/12/22 ? Loc: HO.HHCX ? Attending Dr: Sudha Ruiz MD ? Ordering Physician: Sudha Carter MD ?? Date of Service: 12/12/22 ?? Procedure(s): XR lumbar spine 4V min ?? Accession Number(s): [id number] ? cc: Sudha Carter MD ? EXAMINATION: ?? XR LUMBOSACRAL SPINE WITH OBLIQUES ? CLINICAL INFORMATION: ?? Bilateral low back pain with right-sided sciatica. ? COMPARISON: ?? None available. ? TECHNIQUE: ?? AP, both oblique, and lateral views of the lumbar spine. Lateral view ?? of the lumbosacral junction. ? FINDINGS: ?? Mild lumbar levoscoliosis is seen with apex at L3. Mild multilevel ?? degenerative disc disease is seen most pronounced at L4-L5 and L5-S1 ?? with disc space narrowing and marginal osteophyte formation. ?? Transitional anatomy is seen. There is no acute fracture. The soft ?? tissues are unremarkable. ? XR/XR lumbar spine 4V min ?? IMPRESSION: ?? 1. ??Mild lumbar levoscoliosis and mild multilevel degenerative disc ?? disease. No acute abnormality. ? Dictated By: ?Raimundo Mccracken MD ? Signed By: ?<Electronically signed by Raimundo Mccracken MD in OV> ?12/12/22 1205 ? DD/ 1120 ? TD/TT: ? Hand Sample Maker: JEFF ? Procedure Note Donanna, Image - 12/12/2022 [facility] [address] [place] [address] XRay Report Signed Patient: Jhon WalshMR#: [id number] : 1960cct:[id number] Age/Sex: 61 / MADM Date: 12/12/22 Loc: HO.HHCX Attending Dr: Sudha Ruiz MD Ordering Physician: Sudha Carter MD Date of Service: 12/12/22 Procedure(s): XR lumbar spine 4V min Accession Number(s): [id number] cc: Sudha Carter MD EXAMINATION: XR LUMBOSACRAL SPINE WITH OBLIQUES CLINICAL INFORMATION: Bilateral low back pain with right-sided sciatica. COMPARISON: None available. TECHNIQUE: AP, both oblique, and lateral views of the lumbar spine. Lateral view of the lumbosacral junction. FINDINGS: Mild lumbar levoscoliosis is seen with apex at L3. Mild multilevel degenerative disc disease is seen most pronounced at L4-L5 and L5-S1 with disc space narrowing and marginal osteophyte formation. Transitional anatomy is seen. There is no acute fracture. The soft tissues are unremarkable. XR/XR lumbar spine 4V min IMPRESSION: 1. Mild lumbar levoscoliosis and mild multilevel degenerative disc disease. No acute abnormality. Dictated By: Raimundo Mccracken MD Signed By: <Electronically signed by Raimundo Mccracken MD in OV> 12/12/22 1205 DD/ 1120 TD/TT: Hand Sample Maker: JEFF Sudha Ruiz MD IMG XR PROCEDURES Fin al Result documented in this encounter Visit Diagnoses Diagnosis Hx of onychomycosis- Primary documented in this encounter Additional Health Concerns Assessment Noted Time PHQ-9 Depression Total Score: 0 07/02/19 23 9:26 AM EST documented as of this encounter Care Teams White Sourer Relationship Specialty Start Date End Date Breann Seay FNP [address] [place] [address] PCP - General Family Medicine 05/30/22 01/18/24 Joan Ayala MD [address] [place] [address] PCP - General Internal Medicine 01/19/24 documented as of this encounter
--- OUTSIDE RECORDS SUMMARY | 2024-07-28 13:43 | XMS_ITS | Encounter Summary ---
Author Organization [employer] Address [address] [facility] 7t [place] [address] Care Team Providers Care Senior System Operator Name Role Phone Joan Ayala MD Primary Care Provider + Encounter Details Date Type Department Care Team (Latest Contact Info) Description 07/28/2024 Travel Social History Tobacco Use Types Packs/Day Years [...] documented as of this encounter Care Teams Senior System Operator Relationship Specialty Start Date End Date Joan Ayala MD [address] [place] [address] PCP - General Internal Medicine 01/19/24 documented as of this encounter
--- OUTSIDE RECORDS SUMMARY | 2024-07-28 13:43 | XMS_ITS | Encounter Summary ---
Author Organization [employer] [facility] Address [address] [facility] 7t [place] [address] Care Team Providers Care Ophthalmic Medical Assistant Name Role Phone Breann Seay Primary Care Provider + Joan Ayala MD Primary Care Provider + Reason for Visit * Reason Comments Med Refill Encounter Details Date Type Department Care Team (Late st Contact Info) Description 09/18/2023 Refill [facility] [address] [place] [address] Breann Seay FNP [address] [place], [place] [phone] Moderate persistent asthma without complication; Fungal dermatitis Social History Tobacco Use Types Packs/Day Years [...] as of this encounter Visit Diagnoses Diagnosis Moderate persistent asthma without complication Fungal dermatitis Unspecified dermatomycosis documented in this encounter Additional Health Concerns Assessment Noted Time PHQ-9 Depression Total Score: 0 07/02/19 9:26 AM EST documented as of this encounter Care Teams Ophthalmic Medical Assistant Relationship Specialty Start Date End Date Breann Seay FNP [address] [place] [address] PCP - General Family Medicine 05/30/22 01/18/24 Joan Ayala MD [address] [place] [address] PCP - General Internal Medicine 01/19/24 documented as of this encounter
--- OUTSIDE RECORDS SUMMARY | 2024-07-28 13:43 | XMS_ITS | Encounter Summary ---
Author Organization [employer] [facility] Address [address] [place] [address] [address] [place] [address] Care Team Providers Care Frit Mixer Name Role Phone Breann Seay Primary Care Provider +-[phone] Joan Ayala MD Primary Care Provider + Reason for Visit * Reason Comments Med Refill Encounter Details Date Type Department Care Team (Late st Contact Info) Description 06/15/2022 Refill [facility] [address] [place] [address] Kitty Sanders ANP [address] [place] [address] Social History Tobacco Use Types Packs/Day Years Used Date Smoking Tobacco: Never Assessed Sex and Gender Information Value Date Recorded [...] suspected to have Coronavirus/COVID-19? No / Unsure 05/29/2022 10:49 AM EST documented as of this encounter Plan of Treatment Not on file documented as of this encounter Visit Diagnoses Not on filedocumented in this encounter Care Teams Frit Mixer Relationship Specialty Start Date End Date Breann Seay FNP [address] [place] [address] PCP - General Family Medicine 05/30/22 01/18/24 Joan Ayala MD [address] [place] [address] PCP - General Internal Medicine 01/19/24 documented as of this encounter
--- OUTSIDE RECORDS SUMMARY | 2024-07-28 13:43 | XMS_ITS | Encounter Summary ---
Author Organization [employer] [facility] Address [address] [place] [address] [address]t [place] [address] Care Team Providers Care Ortho Assistant Name Role Phone Breann Seay Primary Care Provider +-2 Joan Ayala MD Primary Care Provider + Reason for Visit * Reason Comments Med Refill Encounter Details Date Type Department Care Team (Late st Contact Info) Description 11/21/[address] [facility] MED & PEDS [address] [place] [address] Kitty Sanders, ANP [address] [place] [address] Social History Tobacco Use Types Packs/Day Years [...] documented as of this encounter Care Teams Ortho Assistant Relationship Specialty Start Date End Date Breann Seay FNP [address] [place] [address] PCP - General Family Medicine 05/30/22 01/18/24 Joan Ayala MD [address] [place] [address] PCP - General Internal Medicine 01/19/24 documented as of this encounter
--- OUTSIDE RECORDS SUMMARY | 2024-07-28 13:43 | XMS_ITS | Encounter Summary ---
Author Organization [employer] Address [address] [facility] 7t [place] [address] Care Team Providers Care Cash Applications Analyst Name Role Phone Joan Ayala MD Primary Care Provider + Reason for Visit * Reason Comments Med Refill Encounter Details Date Type Department Care Team ([facility] Contact Info) Description 07/22/2024 Refill [facility] [address] [place] [address] Breann Seay FNP [address] [place] [address] Social History Tobacco Use Types Packs/Day Years [...] documented as of this encounter Care Teams Cash Applications Analyst Relationship Specialty Start Date End Date Joan Ayala MD [address] [place] [address] PCP - General Internal Medicine 01/19/24 documented as of this encounter
--- OUTSIDE RECORDS SUMMARY | 2024-07-28 13:43 | XMS_ITS | Encounter Summary ---
Author Organization [employer] [facility] Address [address] [place] [id number] Care Team Providers Care Slip Injector And Applicator Name Role Phone Joan Ayala MD Primary Care Provider + Reason for Referral * Consultation (Routine) - Pending Review Specialty Diagnoses / Procedures Referred By Miguel peralta Referred To Contact Urology Diagnoses Lower urinary tract symptoms (LUTS) Joan Ayala MD [address] [place] [phone] Phone: tel: fax: Referral ID Status Reason Start Date Expiration Date Visits Requested Visits Authorized [id number] Pending Review Specialty Services Required 07/28/2024 07/28/2025 1 1 * Consultation (Routine) - Pending Review Specialty Diagnoses / Procedures Referred By Miguel t Referred To Contact Audiology Diagnoses Decreased hearing of right ear Joan Ayala MD [address] [place] [phone] Phone: tel: fax: Referral ID Status Reason Start Date Expiration Date Visits Requested Visits Authorized [id number] Pending Review Specialty Services Required 07/28/2024 07/28/2025 1 1 * Consultation (Routine) - Pending Review Specialty Diagnoses / Procedures Referred By Miguel t Referred To Contact Allergy Diagnoses Seafood allergy Joan Ayala MD [address] [place] [address] Phone: tel: fax: Referral ID Status Reason Start Date Expiration Date Visits Requested Visits Authorized [id number] Pending Review Specialty Services Required 07/28/2024 07/28/2025 1 1 Reason for Visit * Reason Comments Weight Loss Encounter Details Date Type Department Care Team (Late st Contact Info) Description 07/28/2024 10:15 AM EDT Office Visit [facility] [address] [place] [address] Joan Ayala MD [address] [place] [address] Weight loss (Primary Dx); Seafood allergy; Other male erectile dysfunction; Decreased hearing of right ear; Lower urinary tract symptoms (LUTS) Social History Tobacco Use Types Packs/Day Years Used Date Smoking Tobacco: Never Passive Smoke Exposure: Never Smokeless Tobacco: Never Tobacco Cessation:Counseling Given: Not Answered Alcohol Use Standard Drinks/Week Comments Not Currently [...] Sign Reading Time Taken Comments Blood Pressure 123/72 07/28/2024 10:11 AM EDT Pulse 73 07/28/2024 10:11 AM EDT Temperature 36.2 ??C (97.2 ??F) 07/28/2024 10:11 AM E DT Respiratory Rate - - Oxygen Saturation 99% 07/28/2024 10:11 AM EDT Inhaled Oxygen Concentration - - Weight 94.5 kg (208 lb 6 oz) 07/28/2024 10:11 AM EDT Height 185.4 cm (6' 1 ) 07/28/2024 10:11 AM EDT Body Mass Index 27.49 07/28/2024 10:11 AM EDT documented in this encounter Miscellaneous Notes * Assessment & Plan Note - Linette Burns - 07/28/2024 10:43 AM EDTAssociated Problem(s): Decreased hearing of right ear Refer to Otology. * Assessment & Plan Note - Linette Burns - 07/28/2024 10:41 AM EDTAssociated Problem(s): Seafood allergy Refill for Benadryl prn, advised to avoid seafood. 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 * Assessment & Plan Note - Linette Burns - 07/28/2024 10:41 AM EDTAssociated Problem(s): Weight loss Continues to loose weight but at much lower pace, could have been related to URI, his malignancy work up is UTD and normal, will refer to Urology to complete prostate evaluation. Appetite is back to normal, continue monitoring weight and order labs. Fu with me in 4-6 weeks. * Assessment & Plan Note - Linette Burns - 07/28/2024 10:39 AM EDTAssociated Problem(s): Lower urinary tract symptoms (LUTS) Refer to Urologist to rule out BPH. * Assessment & Plan Note - Linette Burns - 07/28/2024 10:39 AM EDTAssociated Problem(s): Other male erectile dysfunction Continue using Viagra prn. documented in this encounter Plan of Treatment Scheduled Orders Name Type Priority Associated Diagnoses Orde r Schedule HIV-1/2 Antigen and Antibodies, Fourth Generation, with Reflexes Lab Routine Weight loss Expected: 07/28/2024 (Approximate), Expires: 07/28/2025 TSH with Reflex to Free T4 Lab Routine Weight loss Expected: 07/28/2024 (Approximate), Expires: 07/28/2025 T-SPOT??[email or web address] Lab Routine Weight loss Expected: 07/28/2024 (Approximate), Expires: 07/28/2025 Syphilis Screen Lab Routine Weight loss Other male erectile dysfunction Expected: 07/28/2024 (Approximate), Expires: 07/28/2025 Scheduled Referrals Name Type Priority Associated Diagnoses Orde r Schedule Referral to Allergy Outpatient Referral Routine Seafood allergy Expected: 07/28/2024 (Approximate), Expires: 07/28/2025 Referral to Audiology Outpatient Referral Routine Decreased hearing of right ear Expected: 07/28/2024 (Approximate), Expires: 07/28/2025 Referral to Urology Outpatient Referral Routine Lower urinary tract symptoms (LUTS) Expected: 07/28/2024 (Approximate), Expires: 07/28/2025 documented as of this encounter Procedures Procedure Name Priority Date/Time Associated Diagnosis Comments CBC WITH AUTO DIFFERENTIAL Routine 07/28/2024 10:49 AM EDT Seafood allergy documented in this encounter Results * (ABNORMAL) CBC auto differential (07/28/2024 10:49 AM EDT) White Blood Count 6.7 4.8 - 10.8 X10*3/uL [facility] Red Blood Count 4.54(L) 4.60 - 5.80 X10*6/uL [facility] Hemoglobin 12.9(L) 14.0 - 18.0 g/dl [facility] Hematocrit 39.4(L) 42.0 - 52.0 % [facility] Mean Corpuscular Volume 86.8 80.0 - 98.0 fL [facility] Mean Corpuscular Hemoglobin 28.4 27.0 - 33.0 pg [facility] Mean Corpuscular HGB Conc 32.7 31.0 - 36.0 g/dl [facility] Red Cell Distribution Width 12.3 11.0 - 16.0 % [facility] Platelet Count 356 160 - 400 X10*3/uL [facility] Mean Platelet Volume 9.9 9.4 - 12.4 fL [facility] Neutrophils Percent Auto 63.1 45 - 73 % [facility] Imm Gran Pct Auto 0.1 0.0 - 0.4 % [facility] Lymphocytes Percent Auto 21.3 20 - 40 % [facility] Monocytes Percent Auto 9.4 2 - 11 % [facility] Eosinophils Percent Auto 4.6(H) 0 - 4 % [facility] Basophils Percent Auto 1.5 0 - 2 % [facility] NRBC Pct Auto 0.0 0.0 - 0.2 /100WBC [facility] Neutrophils Absolute Auto 4.2 2.0 - 8.3 x10*3/uL [facility] Imm Gran Abs Auto 0.01 0.00 - 0.03 X10*3/uL [facility] Lymphocytes Absolute Auto 1.4 1.2 - 4.9 X10*3/uL [facility] Monocytes Absolute Auto 0.6 0.1 - 1.2 X10*3/uL [facility] Eosinophils Absolute Auto 0.3 0.0 - 0.4 X10*3/uL [facility] Basophils Absolute Auto 0.1 0.0 - 0.2 X10*3/uL [facility] NRBC Abs Auto 0.000 0.0 - 0.012 X10*3/uL [facility] Blood Venous blood specimen / Unknown 07/28/2024 10:49 AM EDT 07/28/2024 1:22 PM EDT us Joan Ayala MD LAB BLOOD ORDERABLES Fin al Result [facility] [address] [place] [phone] documented in this encounter Visit Diagnoses Diagnosis Weight loss- Primary Loss of weight Seafood allergy Allergy to seafood Other male erectile dysfunction Decreased hearing of right ear Lower urinary tract symptoms (LUTS) documented in this encounter Additional Health Concerns Assessment Noted Time PHQ-9 Depression Total Score: 0 10/19/19 24 11:47 AM EDT documented as of this encounter Care Teams Slip Injector And Applicator Relationship Specialty Start Date End Date Joan Ayala MD [address] [place] [phone] PCP - General Internal Medicine 01/19/24 documented as of this encounter
--- OUTSIDE RECORDS SUMMARY | 2024-07-28 13:43 | XMS_ITS | Encounter Summary ---
Author Organization [employer] [facility] Address [address] [place] [address] [address] [place] [address] Care Team Providers Care Clinic Administrator Name Role Phone Breann Seay Primary Care Provider +- Joan Ayala MD Primary Care Provider + Reason for Visit * Reason Comments Med Refill Encounter Details Date Type Department Care Team (Late st Contact Info) Description 02/09/2023 Refill [facility] [address] [place] [address] Sudha Carter MD [address] [place] [address] Acute bilateral low back pain with right-sided sciatica Social History Tobacco Use Types Packs/Day Years [...] as of this encounter Visit Diagnoses Diagnosis Acute bilateral low back pain with right-sided sciatica documented in this encounter Additional Health Concerns Assessment Noted Time PHQ-9 Depression Total Score: 0 07/02/19 23 9:26 AM EST documented as of this encounter Care Teams Clinic Administrator Relationship Specialty Start Date End Date Breann Seay FNP [address] [place] [address] PCP - General Family Medicine 05/30/22 01/18/24 Joan Ayala MD [address] [place] [address] PCP - General Internal Medicine 01/19/24 documented as of this encounter
--- OUTSIDE RECORDS SUMMARY | 2024-07-28 13:43 | XMS_ITS | Encounter Summary ---
Author Organization [employer] Address [address] [facility] [address] [place] [address] Care Team Providers Care Rfid Specialist Name Role Phone Joan Ayala MD Primary Care Provider + Reason for Visit * Reason Comments Med Refill Encounter Details Date Type Department Care Team ([facility] st Contact Info) Description 07/06/2024 Refill [facility] [address] [place] [address] Breann Seay FNP [address] [place] [address] Social History Tobacco Use Types Packs/Day Years [...] documented as of this encounter Care Teams Rfid Specialist Relationship Specialty Start Date End Date Joan Ayala MD [address] [place] [phone] PCP - General Internal Medicine 01/19/24 documented as of this encounter
--- OUTSIDE RECORDS SUMMARY | 2024-07-28 13:43 | XMS_ITS | Clinical Summary ---
Author Organization [employer] Address [address] [facility] [address] [place] [address] Care Team Providers Care Donor Support Technician Name Role Phone Joan Ayala MD Primary Care Provider + Allergies Active Allergy Reactions Criticality Noted Date Comments Shellfish Allergy Hives,Itching 11/27/2022 Medications mirtazapine (Remeron) 7.5 MG tablet 06/15/19 23 Active triamcinolone (Kenalog) 0.1 % cream Apply topically if needed in the morning and at bedtime (pain and swelling). 30 g 2 10/09/19 23 Active betamethasone valerate (Valisone) 0.1 % cream 05/25/19 23 Active melatonin 3 MG tablet 11/13/19 23 Active sertraline (Zoloft) 25 MG tablet 10/21/19 23 Active Blood Glucose Monitoring Suppl (Blood Glucose Monitor System) w/Device kit 1 kit 2 times daily. 1 kit 08/03/19 24 2024 Active Blood Pressure Monitor kit 1 kit 2 times daily. 1 kit 08/12/19 24 Active TRUEplus Lancets 33G miscIndications :History of prediabetes USE TO TEST BLOOD SUGAR TWICE A DAY 100 each 2 08/12/19 24 Active FreeStyle lancetsIndicati ons:History of prediabetes 1 each by Other route 2 times daily. To check blood sugar. 100 each 2 08/18/19 24 2024 Active atorvastatin (Lipitor) 20 MG tablet TAKE ONE TABLET BY MOUTH EVERY MORNING ^1R1 30 tablet 11 08/19/19 24 Active lisinopril-hydr oCHLOROthiazide 10-12.5 MG tabletIndicatio ns:Essential hypertension TAKE ONE TABLET BY MOUTH EVERY MORNING ^1R1 30 tablet 11 10/13/19 24 Active cetirizine (ZyrTEC) 10 MG tabletIndicatio ns:Seasonal allergic rhinitis, unspecified trigger TAKE ONE TABLET BY MOUTH EVERY MORNING ^1R1 30 tablet 10/13/19 24 Active amLODIPine (Norvasc) 10 MG tabletIndicatio ns:Essential hypertension TAKE ONE TABLET BY MOUTH EVERY MORNING ^1R1 30 tablet 10/13/19 24 Active metoprolol succinate XL (Toprol-XL) 25 MG 24 hr tabletIndicatio ns:Essential hypertension TAKE ONE TABLET BY MOUTH EVERY MORNING ^1R1 30 tablet 10/13/19 24 Active glucose blood (FREESTYLE LITE) test strip USE TO TEST BLOOD SUGAR TWO TIMES A DAY (BULK) 100 strip 3 02/05/20 24 Active traZODone (Desyrel) 100 MG tablet 01/29/20 24 Active albuterol (2.5 MG/3ML) 0.083% nebulizer solutionIndicat ions:Moderate persistent asthma without complication INHALE THE CONTENTS OF 1 VIAL (3ML) VIA NEBULIZER. NO MORE THAN 3 TIMES A DAY NEEDED (BULK) 75 mL 5 04/01/20 24 Active ketoconazole (NIZOral) 2 % shampooIndicati ons:Fungal dermatitis APPLY TOPICALLY TO THE SCALP AND AFFECTED AREA(S) OF THE FACE AND EARS ONCE DAILY - LEAVE ON FOR 5 MINUTES AND RINSE OFF WITH WATER (BULK) 120 mL 04/29/20 24 Active Advair HFA 230-21 MCG/ACT inhalerIndicati ons:Moderate persistent asthma without complication INHALE 2 PUFFS BY MOUTH TWICE A DAY 12 HOURS APART (BULK) 12 g 5 04/29/20 24 Active Multiple Vitamin (Tab-A-Ira) tabletIndicatio ns:History of prediabetes TAKE ONE TABLET BY MOUTH EVERY DAY ^1R1 30 tablet 11 05/12/20 24 Active albuterol 108 (90 Base) MCG/ACT inhalerIndicati ons:Moderate persistent asthma without complication INHALE TWO PUFFS BY MOUTH EVERY 4 TO 6 HOURS NEEDED (BULK) 8.5 g 3 06/23/19 25 Active aspirin (Aspirin Low Dose) 81 MG EC tablet TAKE ONE TABLET BY MOUTH EVERY DAY 30 tablet 11 07/06/19 25 Active diphenhydrAMINE (BENADryl) 25 MG tablet Take 1 tablet (25 mg) by mouth every 6 (six) hours if needed for itching. 30 tablet 07/29/19 25 2024 Active sildenafil (Viagra) 100 MG tabletIndicatio ns:Other male erectile dysfunction TAKE ONE-HALF TABLET BY MOUTH EVERY DAY NEEDED FOR ERECTILE DYSFUNCTION (VIAL) 10 tablet 11 07/29/19 25 Active diphenhydrAMINE (BENADryl) 25 MG tablet Take 1 tablet (25 mg) by mouth every 6 (six) hours if needed for itching. 30 tablet 10/09/19 23 2024 Discontinued(R eorder (will not trigger notification to Pharmacy)) gabapentin (Neurontin) 300 MG capsuleIndicati ons:Acute bilateral low back pain with right-sided sciatica Take 1 capsule (300 mg) by mouth 3 times daily. 30 capsule 12/13/19 23 2024 Discontinued(T herapy completed) aspirin (Aspirin Low Dose) 81 MG EC tablet TAKE ONE TABLET BY MOUTH EVERY DAY 90 tablet 3 06/19/19 24 2024 Discontinued Misc. Devices (Raised Toilet Seat) misc 1 each Every 4-6 hours as needed (toileting). 1 each 07/28/19 24 2024 sildenafil (Viagra) 100 MG tabletIndicatio ns:Other male erectile dysfunction TAKE ONE-HALF TABLET BY MOUTH EVERY DAY NEEDED FOR ERECTILE DYSFUNCTION (VIAL) 10 tablet 3 04/01/20 24 2024 Discontinued(R eorder (will not trigger notification to Pharmacy)) polyethylene glycol, PEG, 3350 (Glycolax) 17 GM/SCOOP powder Take 17 g by mouth if needed each day (cosntipation) . MIX 17 GRAMS IN 8 OZ OF WATER AND DRINK DAILY DIRECTED (BULK)MIX 17 GRAMS IN 8 OZ OF WATER AND DRINK DAILY DIRECTED (BULK) 527 g 3 04/01/20 24 2024 Discontinued(T herapy completed) docusate sodium (Colace) 100 MG capsule TAKE 1 CAPSULE BY MOUTH TWICE A DAY ^1R1,1R4 60 capsule 5 04/29/20 24 2024 Discontinued(T herapy completed) Citrucel 500 MG tabletIndicatio ns:Constipation , unspecified constipation type TAKE TWO TABLETS BY MOUTH EVERY DAY ^2R1 56 tablet 11 05/12/20 24 2024 Discontinued(T herapy completed) Active Problems Problem Noted Date Diagnosed Date Seafood allergy 07/28/2024 Assessment & Plan (07/28/2024 10:41 AM EDT): Refill for Benadryl prn, advised to avoid seafood. Refer to records administrator/allergy testing and see if he needs Epi pen. Decreased hearing of right ear 07/28/2024 Assessment & Plan (07/28/2024 10:43 AM EDT): Refer to Otology. Weight loss 07/28/2024 Assessment & Plan (07/28/2024 10:41 AM EDT): Continues to loose weight but at much lower pace, could have been related to URI, his malignancy work up is UTD and normal, will refer to Urology to complete prostate evaluation. Appetite is back to normal, continue monitoring weight and order labs. Fu with me in 4-6 weeks. Lower urinary tract symptoms (LUTS) 07/28/2024 Assessment & Plan (07/28/2024 10:39 AM EDT): Refer to Urologist to rule out BPH. Encounter for preventive health examination 02/16 Assessment & Plan (03/08/2024 3:18 PM EDT): Discussed with patient re increase fresh fruit and vegetable intake. Counseled re moderate exercise as tolerated, up to 20min/d Patient feels safe at home. Eye exam: UTD, next one due 01/2025 CRC screen: UTD, next one due 2031 Lipids/FBS: Due, to be ordered. Vaccinations: Influenza vaccination today, all other vaccinations UTD, we will follow up on Covid vaccinations next appointment. Dental visit: Overdue, I gave information for local dental offices in the area. Screening examination for ST D (sexually transmitted disease) 03/08/2024 Assessment & Plan (03/08/2024 3:22 PM EDT): Reports unprotected intercourse since last STD check in 2019. Agreed to have STD check, advised to use condom at all times. Acute bilateral low back pain 12/12/2022 Assessment & Plan (12/12/2022 10:49 AM EDT): Apply heat on affected area Short course of medications F/u with PCP Contact dermatitis 10/07/2022 Allergic rhinitis 07/01/2022 Asthma 07/01/2022 Assessment & Plan (05/27/2024 1:43 PM EST): Uncontrolled, patient should be on LABA/ICS that has been prescribed to him but is unclear if he is taking it. Patient will follow up with pharmacy to make sure he has the order to use BID, otherwise he will get in tough with us. Continue albuterol PRN only. FU in 3 months. Patient declined COVID immunization today, he will have it on a later date. Other adult immunizations are up to date. Acute low back pain 07/01/2022 Obstructive sleep apnea syndrome 07/01/2022 Varicose veins of lower extremity 07/01/2022 Assessment & Plan (03/08/2024 3:21 PM EDT): Advised to wear compression stocking 15-30 mm HG. Will follow up next visit. Frequency of urination 05/29/2022 Class 1 obesity 08/24/2018 Hypercalcemia 08/24/2018 Angina pectoris 12/23/2017 Chest discomfort 10/23/2017 Dyspnea on exertion 10/23/2017 Other male erectile dysfunction 10/23/2017 Assessment & Plan (07/28/2024 10:39 AM EDT): Continue using Viagra prn. Assessment & Plan (03/08/2024 3:21 PM EDT): Refill for Viagra. Claw toe 07/21/2017 Abnormal gait 06/15/2017 Chronic pruritus 06/15/2017 Essential hypertension 03/02/2014 Assessment & Plan (05/27/2024 1:00 PM EST): Controlled. Compliant w/meds Continue lisinopril/hctz + amlodipine + Metoprolol same dose Counseled re low salt diet/increase moderate physical activity. Check home BP BIW and prn CP/MORATAYA/MARTINEZ Non smoking patient. Assessment & Plan (03/08/2024 3:21 PM EDT): Controlled. Compliant w/meds Continue lisinopril/hctz + amlodipine + Metoprolol. Counseled re low salt diet/increase moderate physical activity. Check home BP BIW and prn CP/MORATAYA/MARTINEZ Non smoking patient. Follow up in 1-2 months. Encounters Date Type Department Care Team Description 07/28/2024 10:15 AM EDT Office Visit [facility] [address] [place] [address] Joan Ayala MD Weight loss (Primary Dx); Seafood allergy; Other male erectile dysfunction; Decreased hearing of right ear; Lower urinary tract symptoms (LUTS) 07/28/2024 Travel 07/25/2024 Telephone [facility] [address] [place] [address] Joan Ayala MD Chart prep 07/25/2024 Telephone [facility] [address] [place] [address] Joan Ayala MD Appointment Request 07/22/2024 Refill [facility] [address] [place] [address] Breann Seay FNP 07/22/2024 Refill [facility] [address] [place] [address] Joan Ayala MD Other male erectile dysfunction 07/15/2024 3:00 PM EST Office Visit [facility] [address] [place] [address] Citlalli Will NP Cough in adult patient (Primary Dx); Weight loss 07/06/2024 Refill [facility] [address] [place], [place] [phone] Breann Seay FNP 06/23/2024 Refill [facility] [address] [place] [address] Joan Ayala MD Moderate persistent asthma without complication 06/17/[address] [address] Joan Ayala MD August recall 06/02/2024 10:20 AM EST Immunization [address] [address] Roxy Billy LPN Encounter for immunization 05/27/2024 9:15 AM EST Office Visit [address] [address] Joan Ayala MD Essential hypertension (Primary Dx); Mild intermittent asthma without complication 05/27/2024 Refill [facility] [address] [place], [place] [phone] Breann Seay FNP 05/27/2024 Travel 05/26/[address] [address] Adriane Richardson [place] Chart prep 05/19/2024 Patient Outreach [address] [address] Joan Ayala MD Pre-visit Planning ((Unable to reach for PVP screening and or LVM)) 05/10/2024 Refill [facility] [address] [place] [address] [phone] Breann Seay FNP Constipation, unspecified constipation type; History of prediabetes from Last 3 Months Immunizations Name Administration Dates Next Due Influenza injectable quadriv alent IIV4 with preservative 02/10/2018 Influenza injectable quadriv alent preservative free 03/06/2023,02/08/2021,02/21/2020,2018 Influenza, IIV3, injectable 03/13/2015, 4 Influenza, Split (incl. caroline fied surface antigen) 03/01/2013,01/20/2012 Influenza, seasonal, injecta ble, preservative free 03/08/2024,04/21/2022 Pfizer Covid-19 Vaccine 12+ 06/02/2024, Pfizer Covid-19 Vaccine 12+ Bivalent 04/21/2022 Pneumococcal Conjugate PCV 20 08/19/2023 RSV Bivalent 09/01/2023 TD (adult), 2 Lf tetanus tox oid, preservative free, adsorbed 05/30/2021 Tdap 04/08/2011 Zoster, Recombinant 05/20/2023,03/13/2023 Family History Medical History Relation Name Comments Other - MVA Father Other - MVA Mother Relation Name Status Comments Father Mother Social History Tobacco Use Types Packs/Day Years [...] your housing situation today? I have oh waslh 07/20/[address] you li [...] Orientation Straight 03/17/2022 10 :20 AM EDT Last Filed Vital Signs Vital Sign Reading Time Taken Comments Blood Pressure 123/72 07/28/2024 10:11 AM EDT Pulse 73 07/28/2024 10:11 AM EDT Temperature 36.2 ??C (97.2 ??F) 07/28/2024 10:11 AM E DT Respiratory Rate 19 07/15/2024 3:06 PM EST Oxygen Saturation 99% 07/28/2024 10:11 AM EDT Inhaled Oxygen Concentration - - Weight 94.5 kg (208 lb 6 oz) 07/28/2024 10:11 AM EDT Height 185.4 cm (6' 1 ) 07/28/2024 10:11 AM EDT Body Mass Index 27.49 07/28/2024 10:11 AM EDT Plan of Treatment Health Maintenance Due Date Last Done Comments CT Colonography 1960 FIT DNA/Cologuard 1960 FIT 1960 FOBT 1960 Sigmoidoscopy 1960 Alcohol/Substance Use Screening 1972 SDOH Screening 07/19/2024 07/20/2023 Depression Screening 10/18/2024 10/19/2023, 10/19/19 Tobacco Screening 07/28/2025 07/28/2024 Lipid Panel 03/10/2029 03/10/2024, 04/18, 10/08/2022, Additional history exists DTaP/Tdap/Td Vaccines (3 - Td or Tdap) 05/30/2031 05/30/2021, 04/08/2011 Colonoscopy 07/02/2031 07/02/2021 Colorectal Cancer Screening 07/02/2031 Zoster Vaccines Completed 05/20/2023, 03/13/2023 Pneumococcal Vaccine: 50+ Years Completed 08/19/2023 RSV Patients and Patients Aged 60 years or older Completed 09/01/2023 Influenza Vaccine Completed 03/08/2024, , 04/21/2022, Additional history exists HIV Screening Completed 03/10/2024, 02/16, 03/12/2020 Hepatitis C Screening Completed 03/10/2024 , 03/12/2020, 03/12/2020 COVID-19 Vaccine Completed 06/02/2024, , 04/21/2022, Additional history exists HIB Vaccines Aged Out No longer eligi ble based on patient's age to complete this topic HPV Vaccines Aged Out No longer eligi ble based on patient's age to complete this topic Hepatitis A Vaccines Aged Out No long er eligible based on patient's age to complete this topic Hepatitis B Vaccines Aged Out No long er eligible based on patient's age to complete this topic IPV Vaccines Aged Out No longer eligi ble based on patient's age to complete this topic Meningococcal Vaccine Aged Out No meggan anisa eligible based on patient's age to complete this topic RSV under 20 months Aged Out No longe r eligible based on patient's age to complete this topic Rotavirus Vaccines Aged Out No longer eligible based on patient's age to complete this topic Procedures Procedure Name Priority Date/Time Associated Diagnosis Comments CBC WITH AUTO DIFFERENTIAL Routine 07/28/2024 10:49 AM EDT Seafood allergy POCT INFLUENZA B (ID NOW RAPID MOLECULAR) Routine 07/15/2024 4:10 PM EST Cough in adult patient POCT INFLUENZA A (ID NOW RAPID MOLECULAR) Routine 07/15/2024 4:09 PM EST Cough in adult patient POCT RAPID COVID ANTIGEN Routine 07/15/2024 4:05 PM EST Cough in adult patient HEPATITIS PANEL, GENERAL Routine 03/10/2024 11:11 AM EDT Encounter for preventive health examination HIV 1/2 ANTIGEN/ANTIBODY, FOURTH GENERATION W/RFL Routine 03/10/2024 11:11 AM EDT Encounter for preventive health examination LIPID PANEL WITH REFLEX TO DIRECT LDL Routine 03/10/2024 11:11 AM EDT Essential hypertension HM COLONOSCOPY Routine 07/02/2021 10:25 AM EST from Last 3 Months or Most Recently Relevant to Health Maintenance Results * (ABNORMAL) CBC auto differential (07/28/2024 10:49 AM EDT) White Blood Count 6.7 4.8 - 10.8 X10*3/uL [facility] Red Blood Count 4.54(L) 4.60 - 5.80 X10*6/uL [facility] Hemoglobin 12.9(L) 14.0 - 18.0 g/dl [facility] Hematocrit 39.4(L) 42.0 - 52.0 % [facility] Mean Corpuscular Volume 86.8 80.0 - 98.0 fL [facility] Mean Corpuscular Hemoglobin 28.4 27.0 - 33.0 pg [facility] Mean Corpuscular HGB Conc 32.7 31.0 - 36.0 g/dl [facility] Red Cell Distribution Width 12.3 11.0 - 16.0 % [facility] Platelet Count 356 160 - 400 X10*3/uL [facility] Mean Platelet Volume 9.9 9.4 - 12.4 fL [facility] Neutrophils Percent Auto 63.1 45 - 73 % [facility] Imm Gran Pct Auto 0.1 0.0 - 0.4 % [facility] Lymphocytes Percent Auto 21.3 20 - 40 % [facility] Monocytes Percent Auto 9.4 2 - 11 % [facility] Eosinophils Percent Auto 4.6(H) 0 - 4 % [facility] Basophils Percent Auto 1.5 0 - 2 % [facility] NRBC Pct Auto 0.0 0.0 - 0.2 /100WBC [facility] Neutrophils Absolute Auto 4.2 2.0 - 8.3 x10*3/uL [facility] Imm Gran Abs Auto 0.01 0.00 - 0.03 X10*3/uL [facility] Lymphocytes Absolute Auto 1.4 1.2 - 4.9 X10*3/uL [facility] Monocytes Absolute Auto 0.6 0.1 - 1.2 X10*3/uL [facility] Eosinophils Absolute Auto 0.3 0.0 - 0.4 X10*3/uL [facility] Basophils Absolute Auto 0.1 0.0 - 0.2 X10*3/uL [facility] NRBC Abs Auto 0.000 0.0 - 0.012 X10*3/uL [facility] Blood Venous blood specimen / Unknown 07/28/2024 10:49 AM EDT 07/28/2024 1:22 PM EDT Joan Ayala MD LAB BLOOD ORDERABLES Fin al Result Performing Organization Address [facility]/ZIP Co de Phone Number [facility] [address] [place] [phone] * POCT Rapid Influenza B ESPINAL ID NOW (07/15/2024 4:10 PM EST) Influenza B Negative Negative, Indeterminate [facility] QC Media Lot # [id number] [facility] Lot# Expiration Date [facility] Swab 07/15/2024 4:10 PM EST Citlalli Will NP POINT OF CARE TEST ENTER/EDIT O RDERABLES Final Result Performing Organization Address [facility] de Phone Number [facility] [address] [place] [phone] * POCT Rapid Influenza A ESPINAL ID NOW (07/15/2024 4:09 PM EST) Influenza A Negative Negative, Indeterminate [facility] QC Media Lot # [id number] [facility] Lot# Expiration Date [facility] Swab 07/15/2024 4:09 PM EST Citlalli Will [employer] DEVELOPER POINT OF CARE TEST ENTER/EDIT O RDERABLES Edited Result - Final Performing Organization Address [facility] Co de Phone Number [facility] [address] [place] [phone] * POCT Rapid Covid-19 BinaxNOW (07/15/2024 4:05 PM EST) Pathologist [facility] Rapid COVID Ag Negative QC Media Lot # [id number] Lot# Expiration Date [id number] Swab 07/15/2024 4:05 PM EST Citlalli Will NP POINT OF CARE TEST ENTER/EDIT O RDERABLES Final Result * Lipid Panel with Reflex to Direct LDL (03/10/2024 11:11 AM EDT) Pathologist [facility] Triglycerides 95 <150 mg/dL [facility] Comment:Desirable Triglyceri de: less than 150 mg/dLBorderline High Triglyceride 150-199 mg/dLHigh Triglyceride: 200-499 mg/dLVery High Triglyceride: greater than or equal to 5OO mg/dL Cholesterol 106 <200 mg/dL [facility] Comment:Desirable Cholestero l: less than 200 mg/dLBorderline High Cholesterol: 200-239 mg/dLHigh Cholesterol: greater than 239 mg/dL LDL Cholesterol Calculated 43 <100 mg/dL [facility] Comment:Desirable LDL: less than 100 mg/dLNear Optimal/Above Optimal LDL: 110- 129 mg/dLBorderline High LDL: 130-159 mg/dLHigh LDL: 160-189 mg/dLVery High LDL: greater than or equal to 190 mg/dL HDL Cholesterol 44 >40 mg/dL [facility] Comment:Desirable HDL: great er than 40 mg/dL Note: This HDL assay may give artificially low results in patients with liver disease. Blood 03/10/2024 11:1 1 AM EDT 03/10/2024 1:54 PM EDT Joan Ayala MD LAB BLOOD ORDERABLES Fin al Result [facility] [address] [place] [phone] * Hepatitis Panel, General (03/10/2024 11:11 AM EDT) Hepatitis A IgM Nonreactive Nonreactive [facility] Comment:IgM antibodies to MORATAYA V not detected; does not exclude earlyacute or recovered HAV infection. ~Hepatitis B Surface Antibody NONREACTIVE Nonreactive [facility] Comment:Nonreactive: < 8.00 mIU/mL Hepatitis B Core Antibody Nonreactive Nonreactive [facility] Hepatitis C Antibody Nonreactive Nonreactive [facility] Comment:Antibodies to HCV no t detected; does not exclude early acuteHCV infection. Hepatitis B Surface Ag Negative Negative [facility] Blood 03/10/2024 11:1 1 AM EDT 03/10/2024 1:54 PM EDT us Joan Ayala MD LAB BLOOD ORDERABLES Jesus Alberto olivares Result [facility] [address] [place] [phone] * HIV-1/2 Antigen and Antibodies, Fourth Generation, with Reflexes (03/10/2024 11:11 AM EDT) Pathologist [facility] HIV AB/AG Nonreactive Nonreactive [facility] Comment:HIV-1 p24 Ag and/or HIV-1/HIV-2 Ab not detected.A test result that is nonreactive does not exclude thepossibility of exposure to or infection with HIV-1 and/orHIV-2. Nonreactive results in this assay for individualswith prior exposure to HIV-1 and/or HIV-2 may be due toantigen and antibody levels that are below the limit ofdetection of this assay.[facility] HIV Ag/Ab Combo assay result andsupplemental assay results should be interpreted inconjunction with the patient's clinical presentation,history and other laboratory results. If the results areinconsistent with clinical evidence, additional testing issuggested to confirm the result. Blood Venous blood specimen / Unknown 03/10/2024 11:11 AM EDT 03/10/2024 1:54 PM EDT us Joan Ayala MD LAB BLOOD ORDERABLES Fin al Result [facility] [address] [place] [phone] from Last 3 Months or Most Recently Relevant to Health Maintenance Insurance [place] [address] [place] [phone] Care Teams Donor Support Technician Relationship Specialty Start Date End Date Joan Ayala MD [address] [place] [phone] PCP - General Internal Medicine 01/19/24
--- OUTSIDE RECORDS SUMMARY | 2024-07-28 13:43 | XMS_ITS | Encounter Summary ---
Author Organization [employer] Address [address] [facility] [address] [place] [address] Care Team Providers Care State Manager Name Role Phone Breann Seay Primary Care Provider +-2 Joan Ayala MD Primary Care Provider + Encounter Details Date Type Department Care Team ([facility] st Contact Info) Description 08/07/2023 Telephone [facility] [address] [place] [address] Breann Seay FNP [address] [place] [address] Social History Tobacco Use Types Packs/Day Years [...] AM EDT documented as of this encounter Miscellaneous Notes * Telephone Encounter - Tegan Miner - 08/07/2023 12:04 PM EDT TC from pt stating need a BP monitor and glucometer with supplies sent to [facility]. Not to [facility] PCP Dr. Seay documented in this encounter Plan of Treatment Not on file documented as of this encounter Visit Diagnoses Not on filedocumented in this encounter Additional Health Concerns Assessment Noted Time PHQ-9 Depression Total Score: 0 07/02/19 9:26 AM EST documented as of this encounter Care Teams State Manager Relationship Specialty Start Date End Date Breann Seay FNP [address] [place] [address] PCP - General Family Medicine 05/30/22 01/18/24 Joan Ayala MD [address] [place] [address] PCP - General Internal Medicine 01/19/24 documented as of this encounter
--- OUTSIDE RECORDS SUMMARY | 2024-07-28 13:43 | XMS_ITS | Encounter Summary ---
Author Organization [employer] Address [address] [facility] 7t [place] [address] Care Team Providers Care Government Relations Analyst Name Role Phone Breann Seay Primary Care Provider +9 Joan Ayala MD Primary Care Provider + Reason for Visit * Reason Comments Med Refill Encounter Details Date Type Department Care Team (Late st Contact Info) Description 04/08/2023 Refill [facility] MED & PEDS [address] [place] [address] [facility] [address] [facility] [place] [address] Social History Tobacco Use Types Packs/Day Years Used Date Smoking Tobacco: Never Passive Smoke Exposure: Never Smokeless Tobacco: Never Alcohol Use Standard Drinks/Week Comments Not Currently 0 (1 standard drink = 0.6 oz pur e alcohol) Depression Answer Date Recorded Patient Health Questionnaire-9 Score 0 07/02/2022 Housing Stability Answer Date Recorded What is your housing situation today? I have oh walsh 03/02/[address] you li ve. Do you have problems with any of the following? None of the above 03/02/2023 Food Insecurity Answer Date Recorded Within the past 12 months, y ou worried that your food would run out before you got money to buy more: Never True 03/02/2023 Within the past 12 months,th e food you bought just didn't last and you didn't have enough money to get more: Never True Transportation Answer Date Recorded In the past 12 months, has l ack of transportation kept you from medical appts, meetings, work or from getting things needed for daily living? Yes, it has kept me from medical appointments or getting medications. 02/26/2023 Utilities Answer Date Recorded In the past 12 months, has t he electric, gas, oil or water company threatened to shut off services in your home? No 03/02/2023 Depression Answer Date Recorded Patient Health Questionnaire-2 [...] documented as of this encounter Care Teams Government Relations Analyst Relationship Specialty Start Date End Date Breann Seay FNP [address] [place] [address] PCP - General Family Medicine 05/30/22 01/18/24 Joan Ayala MD [address] [place] [address] PCP - General Internal Medicine 01/19/24 documented as of this encounter
--- OUTSIDE RECORDS SUMMARY | 2024-07-28 13:43 | XMS_ITS | Encounter Summary ---
Author Organization [employer] Address [address] [facility] 7t [place] [address] Care Team Providers Care Bromination Equipment Operator Name Role Phone Breann Seay Primary Care Provider +1 Joan Ayala MD Primary Care Provider + Reason for Visit * Reason Comments Med Refill Encounter Details Date Type Department Care Team (Late st Contact Info) Description 03/31/2023 Refill [facility] [address] [place] [address] [facility] 230 [facility] [place] [address] Social History Tobacco Use Types Packs/Day Years [...] documented as of this encounter Care Teams Bromination Equipment Operator Relationship Specialty Start Date End Date Breann Seay FNP 230 [place] [address] PCP - General Family Medicine 05/30/22 01/18/24 Joan Ayala MD 230 [place] [address] PCP - General Internal Medicine 01/19/24 documented as of this encounter
--- OUTSIDE RECORDS SUMMARY | 2024-07-28 13:43 | XMS_ITS | Encounter Summary ---
Author Organization [facility] Address [address] [place] [address] 7 [place] [address] Care Team Providers Care Trade Mark Examiner Name Role Phone Breann Seay Primary Care Provider +-5 Joan Ayala MD Primary Care Provider + Reason for Visit * Reason Comments Med Refill Encounter Details Date Type Department Care Team (Late st Contact Info) Description 10/14/2022 Refill [facility] MED[facility] [address] [place] [address] Breann Seay FNP [address] [place] [address] Moderate persistent asthma without complication; Chronic bilateral low back pain without sciatica Social History Tobacco Use Types Packs/Day [...] suspected to have Coronavirus/COVID-19? No / Unsure 10/08/2022 9:46 AM EDT documented as of this encounter Plan of Treatment Not on file documented as of this encounter Visit Diagnoses Diagnosis Moderate persistent asthma without complication Chronic bilateral low back pain without sciatica documented in this encounter Additional Health Concerns Assessment Noted Time PHQ-9 Depression Total Score: 0 07/02/19 9:26 AM EST documented as of this encounter Care Teams Trade Mark Examiner Relationship Specialty Start Date End Date Breann Seay FNP 230 [place] [address] PCP - General Family Medicine 05/30/22 01/18/24 Joan Ayala MD 230 [place] [address] PCP - General Internal Medicine 01/19/24 documented as of this encounter
--- OUTSIDE RECORDS SUMMARY | 2024-07-28 13:43 | XMS_ITS | Encounter Summary ---
Author Organization [employer] [facility] Address [address] [place] [address] 7 [place] [address] Care Team Providers Care Floor Sanding Machine Operator Name Role Phone Breann Seay Primary Care Provider [phone] Joan Ayala MD Primary Care Provider + Reason for Referral * Medications - Closed Specialty Diagnoses / Procedures Referred By Miguel t Referred To Contact Breann Seay FNP 230 [place] [address] Phone: tel: fax: Referral ID Status Reason Start Date Expiration Date Visits Re quested Visits Authorized [id number] Closed 1 1 Encounter Details Date Type Department Care Team (Late st Contact Info) Description 08/03/2023 Orders Only [facility] MED & PEDS [address] [place] [address] Breann Seay FNP 230 [place] [address] Hypertension, unspecified type (Primary Dx); History of prediabetes Social History Tobacco Use Types Packs/Day Years [...] as of this encounter Visit Diagnoses Diagnosis Hypertension, unspecified type- Primary History of prediabetes documented in this encounter Additional Health Concerns Assessment Noted Time PHQ-9 Depression Total Score: 0 07/02/19 23 9:26 AM EST documented as of this encounter Care Teams Floor Sanding Machine Operator Relationship Specialty Start Date End Date Breann Seay FNP 230 [place] [address] PCP - General Family Medicine 05/30/22 01/18/24 Joan Ayala MD 230 [place] [address] PCP - General Internal Medicine 01/19/24 documented as of this encounter
--- OUTSIDE RECORDS SUMMARY | 2024-07-28 13:43 | XMS_ITS | Encounter Summary ---
Author Organization [facility] [facility] Address [address] [place] [address] 7 [place] [address] Care Team Providers Care Supervisor Fertilizer Name Role Phone Breann Seay Primary Care Provider +-7 Joan Ayala MD Primary Care Provider + Reason for Visit * Reason Comments Med Refill Encounter Details Date Type Department Care Team (Late st Contact Info) Description 01/29/2023 Refill [facility] 230 [place] [address] Breann Seay FNP [address] [place] [address] Moderate persistent asthma without complication Social History [...] Diagnoses Diagnosis Moderate persistent asthma without complication documented in this encounter Additional Health Concerns Assessment Noted Time PHQ-9 Depression Total Score: 0 07/02/19 23 9:26 AM EST documented as of this encounter Care Teams Supervisor Fertilizer Relationship Specialty Start Date End Date Breann Seay FNP 230 [place] [address] PCP - General Family Medicine 05/30/22 01/18/24 Joan Ayala MD 230 [place] [address] PCP - General Internal Medicine 01/19/24 documented as of this encounter
--- OUTSIDE RECORDS SUMMARY | 2024-07-28 13:43 | XMS_ITS | Encounter Summary ---
Author Organization [employer] Address [address] [place] [address] 7t [place] [address] Care Team Providers Care Veneer Taping Machine Offbearer Name Role Phone Breann Seay Primary Care Provider [phone] Joan Ayala MD Primary Care Provider + Encounter Details Date Type Department Care Team (Late st Contact Info) Description 07/23/2022 Orders Only [facility] MED & PEDS [address] [place] [address] Ester Carson LPN Social History Tobacco Use Types Packs/Day Years [...] suspected to have Coronavirus/COVID-19? No / Unsure 07/02/2022 9:13 AM EST documented as of this encounter Plan of Treatment Not on file documented as of this encounter Visit Diagnoses Not on filedocumented in this encounter Additional Health Concerns Assessment Noted Time PHQ-9 Depression Total Score: 0 07/02/19 9:26 AM EST documented as of this encounter Care Teams Veneer Taping Machine Offbearer Relationship Specialty Start Date End Date Breann Seay FNP 230 [place] [address] PCP - General Family Medicine 05/30/22 01/18/24 Joan Ayala MD 230 [place] [address] PCP - General Internal Medicine 01/19/24 documented as of this encounter
--- OUTSIDE RECORDS SUMMARY | 2024-07-28 13:43 | XMS_ITS | Encounter Summary ---
Author Organization [facility] [facility] Address [address] [place] [address] 7t [place] [address] Care Team Providers Care Fish Net Stringer Name Role Phone Breann Seay Primary Care Provider +-5 Joan Ayala MD Primary Care Provider + Reason for Visit * Reason Comments Med Refill Encounter Details Date Type Department Care Team (Late st Contact Info) Description 01/28/2023 Refill [facility] 230 [place] [address] Sudha Carter MD [address] [place] [address] Acute bilateral low back pain with right-sided [...] documented as of this encounter Care Teams Fish Net Stringer Relationship Specialty Start Date End Date Breann Seay FNP [address] [place] [address] PCP - General Family Medicine 05/30/22 01/18/24 Joan Ayala MD [address] [place] [address] PCP - General Internal Medicine 01/19/24 documented as of this encounter
--- OUTSIDE RECORDS SUMMARY | 2024-07-28 13:43 | XMS_ITS | Encounter Summary ---
Author Organization [facility] Address [address] [place] [address] 7t [place] [address] Care Team Providers Care Vector Control Specialist Name Role Phone Breann Seay Primary Care Provider +-8 Joan Ayala MD Primary Care Provider + Reason for Visit * Reason Comments Med Refill Encounter Details Date Type Department Care Team (Late st Contact Info) Description 10/01/2022 Refill [facility] MED & PEDS [address] [place] [address] Kitty Sanders, ANP [address] [place] [address] Moderate persistent asthma without complication Social History [...] documented as of this encounter Care Teams Vector Control Specialist Relationship Specialty Start Date End Date Breann Seay FNP 230 [place] [address] PCP - General Family Medicine 05/30/22 01/18/24 Joan Ayala MD 230 [place] [address] PCP - General Internal Medicine 01/19/24 documented as of this encounter
--- OUTSIDE RECORDS SUMMARY | 2024-07-28 13:43 | XMS_ITS | Encounter Summary ---
Author Organization [employer] [facility] Address [address] [place] [address] 7 [place] [address] Care Team Providers Care Gasket Winder Name Role Phone Breann Seay Primary Care Provider +-5 Joan Ayala MD Primary Care Provider + Reason for Visit * Reason Comments Med Refill Encounter Details Date Type Department Care Team (Late st Contact Info) Description 01/09/2023 Refill [facility] MEDIC[facility] 230 [place] [address] Breann Seay FNP [address] [place] [address] Moderate persistent asthma without complication Social History [...] documented as of this encounter Care Teams Gasket Winder Relationship Specialty Start Date End Date Breann Seay FNP [address] [place] [address] PCP - General Family Medicine 05/30/22 01/18/24 Joan Ayala MD 230 [place] [address] PCP - General Internal Medicine 01/19/24 documented as of this encounter
--- OUTSIDE RECORDS SUMMARY | 2024-07-28 13:43 | XMS_ITS | Encounter Summary ---
Author Organization [facility] Address [address] [place] [address] 7t [place] [address] Care Team Providers Care Senior Unix Administrator Name Role Phone Breann Seay Primary Care Provider +-2 Joan Ayala MD Primary Care Provider + Reason for Visit * Reason Comments Med Refill Encounter Details Date Type Department Care Team (Late st Contact Info) Description 01/09/2023 Refill [facility] 230 [place] [address] Sudha Carter MD [address] [place] [address] Acute bilateral low back pain with right-sided [...] as of this encounter Care Teams Senior Unix Administrator Relationship Specialty Start Date End Date Breann Seay FNP 230 [place] [address] PCP - General Family Medicine 05/30/22 01/18/24 Joan Ayala MD [address] [place] [address] PCP - General Internal Medicine 01/19/24 documented as of this encounter
--- OUTSIDE RECORDS SUMMARY | 2024-07-28 13:43 | XMS_ITS | Encounter Summary ---
Author Organization [facility] Address [address] [place] [address] 7 [place] [address] Care Team Providers Care Bill Poster Installer Name Role Phone Breann Seay Primary Care Provider +- Joan Ayala MD Primary Care Provider + Reason for Visit * Reason Comments Med Refill Encounter Details Date Type Department Care Team (Late st Contact Info) Description 11/13/2022 Refill [facility] 230 [place] [address] Breann Seay FNP [address] [place] [address] Chronic bilateral low back pain without sciatica; [...] documented as of this encounter Care Teams Bill Poster Installer Relationship Specialty Start Date End Date Breann Seay FNP [address] [place] [address] PCP - General Family Medicine 05/30/22 01/18/24 Joan Ayala MD [address] [place] [address] PCP - General Internal Medicine 01/19/24 documented as of this encounter
--- OUTSIDE RECORDS SUMMARY | 2024-07-28 13:43 | XMS_ITS | Encounter Summary ---
Author Organization [employer] [facility] Address [address] [place] [address] 7 [place] [address] Care Team Providers Care Senior Cognos Developer Name Role Phone Breann Seay Primary Care Provider [phone] Joan Ayala MD Primary Care Provider + Reason for Visit * Reason Comments Med Change Request Encounter Details Date Type Department Care Team (Late st Contact Info) Description 01/08/2023 Refill [facility] [address] [place] [address] Breann Seay FNP [address] [place] [address] Constipation, unspecified constipation type Social History Tobacco Use Types Packs/Day Years [...] as of this encounter Visit Diagnoses Diagnosis Constipation, unspecified constipation type documented in this encounter Additional Health Concerns Assessment Noted Time PHQ-9 Depression Total Score: 0 07/02/19 9:26 AM EST documented as of this encounter Care Teams Senior Cognos Developer Relationship Specialty Start Date End Date Breann Seay FNP [address] [place] [address] PCP - General Family Medicine 05/30/22 01/18/24 Joan Ayala MD 230 [place] [address] PCP - General Internal Medicine 01/19/24 documented as of this encounter
--- OUTSIDE RECORDS SUMMARY | 2024-07-28 13:43 | XMS_ITS | Encounter Summary ---
Author Organization [employer] [facility] Address [address] [place] [address] 7t [place] [address] Care Team Providers Care Distribution Spec Name Role Phone Breann Seay Primary Care Provider +-0 Joan Ayala MD Primary Care Provider + Reason for Visit * Reason Comments Med Refill Encounter Details Date Type Department Care Team (Late st Contact Info) Description 11/21/2022 Refill [facility] [address] [place] [address] Breann Seay FNP [address] [place] [address] Moderate persistent asthma without complication; Chronic bilateral [...] documented as of this encounter Care Teams Distribution Spec Relationship Specialty Start Date End Date Breann Seay FNP 230 [place] [address] PCP - General Family Medicine 05/30/22 01/18/24 Joan Ayala MD [address] [place] [address] PCP - General Internal Medicine 01/19/24 documented as of this encounter
--- OUTSIDE RECORDS SUMMARY | 2024-07-28 13:43 | XMS_ITS | Encounter Summary ---
Author Organization [employer] Address [address] [place] [address] 7 [place] [address] Care Team Providers Care Iron Guardrail Installer Name Role Phone Joan Ayala MD Primary Care Provider + Reason for Visit * Reason Onset Date Comments Appointment Request 07/25/2024 Encounter Details Date Type Department Care Team ([facility] Contact Info) Description 07/25/2024 Telephone [facility] [address] [place] [address] Joan Ayala MD [address] [place] [address] Appointment Request Social History Tobacco Use Types Packs/Day Years [...] encounter Miscellaneous Notes * Telephone Encounter - Jenny Mims RN - 07/25/2024 12:42 PM EDT TC placed to pt. Pt. Reports asthma has improved since appt. On 07/15/24, using inhaler as ordered. However pt. Reports recent unintentional weight loss, reprts going from 220lb to 197lb in one month and is concerned. Pt. Agrees to move appt. Sooner to 07/28/24 at 10:15am with PCP. * Telephone Encounter - Efra Curry - 07/25/2024 11:33 AM EDT Tc from pt requesting a call back regarding Appt on 08/25/24. Pt would like to see if there is anything sooner. Contact pt at [phone] documented in this encounter Plan of Treatment Not on file documented as of this encounter Visit Diagnoses Not on filedocumented in this encounter Additional Health Concerns Assessment Noted Time PHQ-9 Depression Total Score: 0 10/19/19 24 11:47 AM EDT documented as of this encounter Care Teams Iron Guardrail Installer Relationship Specialty Start Date End Date Joan Ayala MD [address] [place] [address] PCP - General Internal Medicine 01/19/24 documented as of this encounter
--- OUTSIDE RECORDS SUMMARY | 2024-07-28 13:43 | XMS_ITS | Encounter Summary ---
Author Organization [facility] Address [address] [place] [address] 7t [place] [address] Care Team Providers Care Rent Control Office Manager Name Role Phone Breann Seay Primary Care Provider +-9 Joan Ayala MD Primary Care Provider + Reason for Visit * Reason Comments Med Refill Encounter Details Date Type Department Care Team (Late st Contact Info) Description 01/09/2023 Refill [facility] MED & PEDS [address] [place] [address] Kitty Sanders, ANP [address] [place] [address] Social History Tobacco Use Types Packs/Day Years [...] documented as of this encounter Care Teams Rent Control Office Manager Relationship Specialty Start Date End Date Breann Seay FNP [address] [place] [address] PCP - General Family Medicine 05/30/22 01/18/24 Joan Ayala MD [address] [place] [address] PCP - General Internal Medicine 01/19/24 documented as of this encounter
--- OUTSIDE RECORDS SUMMARY | 2024-07-28 13:43 | XMS_ITS | Encounter Summary ---
Author Organization [employer] Address [address] [place] [address] 7 [place] [address] Care Team Providers Care Speech Pathologist Name Role Phone Joan Ayala MD Primary Care Provider + Reason for Visit * Reason Onset Date Comments Chart prep 07/25/2024 Encounter Details Date Type Department Care Team ([facility] Contact Info) Description 07/25/2024 Telephone [facility] [address] [place] [address] Joan Ayala MD [address] [place] [address] Chart prep Social History Tobacco Use Types Packs/Day Years [...] encounter Miscellaneous Notes * Telephone Encounter - Adriane Richardson MA - 07/25/2024 1:38 PM EDT Chart Prep Labs: not done Images: done Vaccines due: yes Referrals: complete Screenings: Up to date Overdue care gaps: SDOH documented in this encounter Plan of Treatment Not on file documented as of this encounter Visit Diagnoses Not on filedocumented in this encounter Additional Health Concerns Assessment Noted Time PHQ-9 Depression Total Score: 0 10/19/19 11:47 AM EDT documented as of this encounter Care Teams Speech Pathologist Relationship Specialty Start Date End Date Joan Ayala MD [address] [place] [address] PCP - General Internal Medicine 01/19/24 documented as of this encounter
--- OUTSIDE RECORDS SUMMARY | 2024-07-28 13:43 | XMS_ITS | Encounter Summary ---
Author Organization [facility] [facility] Address [address] [place] [address] 7t [place] [address] Care Team Providers Care Rn Imaging Name Role Phone Breann Seay Primary Care Provider +-9 Joan Ayala MD Primary Care Provider + Reason for Visit * Reason Comments Med Refill Encounter Details Date Type Department Care Team (Late st Contact Info) Description 02/09/2023 Refill [facility] MED & PEDS [address] [place] [address] [facility] 230 [place] [address] Moderate persistent asthma without complication Social History [...] documented as of this encounter Care Teams Rn Imaging Relationship Specialty Start Date End Date Breann Seay FNP [address] [place] [address] PCP - General Family Medicine 05/30/22 01/18/24 Joan Ayala MD [address] [place] [address] PCP - General Internal Medicine 01/19/24 documented as of this encounter
--- OUTSIDE RECORDS SUMMARY | 2024-07-28 13:43 | XMS_ITS | Encounter Summary ---
Author Organization [employer] Address [address] [facility] 7t [place] [address] Care Team Providers Care Sorter Upholstery Parts Name Role Phone Breann Seay Primary Care Provider +0 Joan Ayala MD Primary Care Provider + Reason for Visit * Reason Comments Med Refill Encounter Details Date Type Department Care Team (Late st Contact Info) Description 07/16/2023 Refill [facility] MED & PEDS [address] [place] [address] Breann Seay FNP [address] [facility] [place] [address] Moderate persistent asthma without complication Social History [...] documented as of this encounter Care Teams Sorter Upholstery Parts Relationship Specialty Start Date End Date Breann Seay FNP [address] [place] [address] PCP - General Family Medicine 05/30/22 01/18/24 Joan Ayala MD [address] [place] [address] PCP - General Internal Medicine 01/19/24 documented as of this encounter
--- OUTSIDE RECORDS SUMMARY | 2024-07-28 13:44 | XMS_ITS | Encounter Summary ---
Author Organization [employer] Address [address] [facility] 7t [place] [address] Care Team Providers Care Fish Drier Name Role Phone Breann Seay Primary Care Provider +9 Joan Ayala MD Primary Care Provider + Reason for Visit * Reason Comments Med Refill Encounter Details Date Type Department Care Team (Late st Contact Info) Description 03/27/2023 Refill [facility] MED & PEDS [address] [place] [address] [facility] [address] [place] [address] Social History Tobacco Use Types Packs/Day Years Used Date Smoking Tobacco: Never Passive Smoke Exposure: Never Smokeless Tobacco: Never Alcohol Use Standard Drinks/Week Comments Not Currently 0 (1 standard drink = 0.6 oz pur e alcohol) Depression Answer Date Recorded Patient Health Questionnaire-9 Score 0 07/02/2022 Housing Stability Answer Date Recorded What is your housing situation today? I have ho walsh 03/02/[address] you [...] as of this encounter Care Teams Fish Drier Relationship Specialty Start Date End Date Breann Seay FNP 230 [place] [address] PCP - General Family Medicine 05/30/22 01/18/24 Joan Ayala MD [address] [place] [address] PCP - General Internal Medicine 01/19/24 documented as of this encounter
--- OUTSIDE RECORDS SUMMARY | 2024-07-28 13:44 | XMS_ITS | Encounter Summary ---
Author Organization [employer] Address [address] [facility] 7t [place] [address] Care Team Providers Care Staker Surveying Name Role Phone Breann Seay Primary Care Provider +-9 Joan Ayala MD Primary Care Provider + Encounter Details Date Type Department Care Team ([facility] st Contact Info) Description 08/07/2023 Telephone [facility] [address] [place] [address] Breann Seay FNP [address] [place] [address] Social History Tobacco Use Types Packs/Day Years [...] documented as of this encounter Care Teams Staker Surveying Relationship Specialty Start Date End Date Breann Seay FNP [address] [place] [address] PCP - General Family Medicine 05/30/22 01/18/24 Joan Ayala MD 230 [place] [address] PCP - General Internal Medicine 01/19/24 documented as of this encounter
--- OUTSIDE RECORDS SUMMARY | 2024-07-28 13:44 | XMS_ITS | Encounter Summary ---
Author Organization [employer] Address [address] [facility] 7t [place] [address] Care Team Providers Care Magazine Feeder Name Role Phone Breann Seay Primary Care Provider [phone] Joan Ayala MD Primary Care Provider + Reason for Visit * Reason Onset Date Comments Medication Question 08/12/2023 Encounter Details Date Type Department Care Team ([facility] st Contact Info) Description 08/12/2023 Telephone [facility] MEDICINE [address] [place] [address] Breann Seay FNP [address] [place], [place] [phone] Medication Question Social History Tobacco Use Types Packs/Day Years [...] encounter Miscellaneous Notes * Telephone Encounter - Duran Headley - 08/12/2023 11:36 AM EDT Tc from Pharmacy calling to request a new script from [facility] documented in this encounter Plan of Treatment Not on file documented as of this encounter Visit Diagnoses Not on filedocumented in this encounter Additional Health Concerns Assessment Noted Time PHQ-9 Depression Total Score: 0 07/02/19 23 9:26 AM EST documented as of this encounter Care Teams Magazine Feeder Relationship Specialty Start Date End Date Breann Seay FNP [address] [place] [address] PCP - General Family Medicine 05/30/22 01/18/24 Joan Ayala MD [address] [place] [address] PCP - General Internal Medicine 01/19/24 documented as of this encounter
--- OUTSIDE RECORDS SUMMARY | 2024-07-28 13:44 | XMS_ITS | Encounter Summary ---
Author Organization [facility] [employer] Address [address] [place] [address] 7 [place] [address] Care Team Providers Care Sausage Machine Operator Name Role Phone Breann Seay Primary Care Provider [phone] Joan Ayala MD Primary Care Provider + Reason for Visit * Reason Comments Med Refill Encounter Details Date Type Department Care Team (Late st Contact Info) Description 02/18/2023 Refill [facility] [address] [place] [address] Breann Seay FNP [address] [place] [address] Chronic bilateral low back pain without sciatica [...] documented as of this encounter Care Teams Sausage Machine Operator Relationship Specialty Start Date End Date Breann Seay FNP [address] [place] [address] PCP - General Family Medicine 05/30/22 01/18/24 Joan Ayala MD [address] [place] [address] PCP - General Internal Medicine 01/19/24 documented as of this encounter
--- OUTSIDE RECORDS SUMMARY | 2024-07-28 13:44 | XMS_ITS | Encounter Summary ---
Author Organization [employer] Address [address] [place] [address] 7 [place] [address] Care Team Providers Care Cashier Tube Room Name Role Phone Breann Seay Primary Care Provider [phone] Joan Ayala MD Primary Care Provider + Encounter Details Date Type Department Care Team (Late st Contact Info) Description 11/17/2023 Telephone [facility] MEDICINE [address] [place] [address] rBeann Seay FNP [address] [place] [address] Social History Tobacco Use Types Packs/Day Years [...] encounter Miscellaneous Notes * Telephone Encounter - Yany Garcia [place] - 11/18/2023 3:08 PM EDT [facility] is closed and also doesn't have any slots at all needs to be booked with another pcp documented in this encounter Plan of Treatment Not on file documented as of this encounter Visit Diagnoses Not on filedocumented in this encounter Additional Health Concerns Assessment Noted Time PHQ-9 Depression Total Score: 0 10/19/19 24 11:47 AM EDT documented as of this encounter Care Teams Cashier Tube Room Relationship Specialty Start Date End Date Breann eSay FNP [address] [place] [address] PCP - General Family Medicine 05/30/22 01/18/24 Joan Ayala MD [address] [place] [address] PCP - General Internal Medicine 01/19/24 documented as of this encounter
--- OUTSIDE RECORDS SUMMARY | 2024-07-28 13:44 | XMS_ITS | Encounter Summary ---
Author Organization [employer] Address [address] [facility] 7t [place] [address] Care Team Providers Care Deputy Sheriff Lieutenant Name Role Phone Breann Seay Primary Care Provider [phone] Joan Ayala MD Primary Care Provider + Reason for Visit * Reason Onset Date Comments Med Refill Referral 08/14/2023 Patient walked i n stating he called the place of the referral for press setup operator and number is unavailable. Patient is requesting new referral for press setup operator. Encounter Details Date Type Department Care Team (Late st Contact Info) Description 08/14/2023 Refill [facility] MEDICINE [address] [place], [place] [phone] Breann Seay FNP [address] [place], [place] [phone] Other male erectile dysfunction Social History Tobacco [...] encounter Miscellaneous Notes * Telephone Encounter - Mi Salas - 08/25/2023 11:11 AM EDT Patient walked in stating he called the place of the referral for press setup operator and number is unavailable. Patient is requesting new referral for press setup operator. documented in this encounter Plan of Treatment Not on file documented as of this encounter Visit Diagnoses Diagnosis Other male erectile dysfunction documented in this encounter Additional Health Concerns Assessment Noted Time PHQ-9 Depression Total Score: 0 07/02/19 23 9:26 AM EST documented as of this encounter Care Teams Deputy Sheriff Lieutenant Relationship Specialty Start Date End Date Breann Seay FNP [address] [place] [address] PCP - General Family Medicine 05/30/22 01/18/24 Joan Ayala MD [address] [place] [address] PCP - General Internal Medicine 01/19/24 documented as of this encounter
--- OUTSIDE RECORDS SUMMARY | 2024-07-28 13:44 | XMS_ITS | Encounter Summary ---
Author Organization [employer] Address [address] [place] [address] 7 [place] [address] Care Team Providers Care Legal Consultant Name Role Phone Breann Seay Primary Care Provider [phone] Joan Ayala MD Primary Care Provider + Reason for Visit * Reason Onset Date Comments Med Change Request 08/11/2023 telephone call 08/11/2023 Encounter Details Date Type Department Care Team ([facility] st Contact Info) Description 08/11/2023 Telephone [facility] MEDICINE [address] [place] [address] Breann Seay FNP [address] [place] [address] Med Change Request; telephone call Social History Tobacco Use Types Packs/Day Years Used Date Smoking Tobacco: Never Passive Smoke Exposure: Never Smokeless Tobacco: Never Alcohol Use Standard Drinks/Week Comments Not Currently 0 (1 standard drink = 0.6 oz pur e alcohol) Depression Answer Date Recorded Patient Health Questionnaire-9 Score 0 07/02/2022 Housing Stability Answer Date Recorded What is your housing situation today? I have ohmichaela walsh 07/20/[address] you [...] encounter Miscellaneous Notes * Telephone Encounter - Carol Menon RN - 08/12/2023 10:36 AM EDT Noted. Pt request has been forwarded to pcp. * Telephone Encounter - Tammie Leal - 08/12/2023 10:10 AM EDT Patient walked in requesting the status of his medications. However patient want medications, BP monitor and touch glucometer to be sent to [facility] pharmacy. Please contact patient to number on file whenmedication get to [facility] pharmacy. * Telephone Encounter - Velia Leal - 08/11/2023 11:36 AM EDT Tc from pharmacy requesting an alternative for Methylcellulose, Laxative, (Citrucel) 500 MG tablet.States it is currently on back order. Pharmacy is in stock for reguloid capsules or metamucil capsules. documented in this encounter Plan of Treatment Not on file documented as of this encounter Visit Diagnoses Not on filedocumented in this encounter Additional Health Concerns Assessment Noted Time PHQ-9 Depression Total Score: 0 07/02/19 23 9:26 AM EST documented as of this encounter Care Teams Legal Consultant Relationship Specialty Start Date End Date Breann Seay FNP [address] [place] [address] PCP - General Family Medicine 05/30/22 01/18/24 Joan Ayala MD [address] [place] [address] PCP - General Internal Medicine 01/19/24 documented as of this encounter
--- OUTSIDE RECORDS SUMMARY | 2024-07-28 13:44 | XMS_ITS | Encounter Summary ---
Author Organization [facility] Address [address] [place] [address] 7t [place] [address] Care Team Providers Care Assembly Line Machine Operator Name Role Phone Breann Seay Primary Care Provider [phone] Joan Ayala MD Primary Care Provider + Reason for Visit * Reason Comments Med Refill Encounter Details Date Type Department Care Team (Late st Contact Info) Description 02/18/2023 Refill [facility] MED & PEDS [address] [place] [address] [facility] [address] [place] [address] Moderate persistent asthma without complication Social History [...] documented as of this encounter Care Teams Assembly Line Machine Operator Relationship Specialty Start Date End Date Breann Seay FNP [address] [place] [address] PCP - General Family Medicine 05/30/22 01/18/24 Joan Ayala MD [address] [place] [address] PCP - General Internal Medicine 01/19/24 documented as of this encounter
--- OUTSIDE RECORDS SUMMARY | 2024-07-28 13:44 | XMS_ITS | Encounter Summary ---
Author Organization [facility] Address [address] [place] [address] 7t [place] [address] Care Team Providers Care Rehab Director Name Role Phone Kitty Sanders Primary Care Provider Breann Seay Primary Care Provider [phone] Joan Ayala MD Primary Care Provider + Encounter Details Date Type Department Care Team (Late st Contact Info) Description 05/01/2022 Orders Only [facility] [address] [place] [address] Winnie Knight LPN Social History Tobacco Use Types Packs/Day [...] suspected to have Coronavirus/COVID-19? No / Unsure 04/21/2022 10:36 AM EST documented as of this encounter Plan of Treatment Not on file documented as of this encounter Visit Diagnoses Not on filedocumented in this encounter Care Teams Rehab Director Relationship Specialty Start Date End Date Kitty Sanders ANP [address] [place] [address] PCP - General Family Medicine 01/13/22 05/29/22 Breann Seay FNP [address] [place] [address] PCP - General Family Medicine 05/30/22 01/18/24 Joan Ayala MD [address] [place] [address] PCP - General Internal Medicine 01/19/24 documented as of this encounter
--- OUTSIDE RECORDS SUMMARY | 2024-07-28 13:44 | XMS_ITS | Encounter Summary ---
Author Organization [facility] Address [address] [facility] 7t [place] [address] Care Team Providers Care Law Enforcement Officer Name Role Phone Breann Seay Primary Care Provider [phone] Joan Ayala MD Primary Care Provider + Reason for Visit * Reason Comments Med Refill Encounter Details Date Type Department Care Team (Late st Contact Info) Description 08/14/2023 Refill [facility] MEDICINE [address] [place] [address] Breann Seay FNP [address] [place], [place] [phone] Other male erectile dysfunction Social History Tobacco [...] documented as of this encounter Care Teams Law Enforcement Officer Relationship Specialty Start Date End Date Breann Seay FNP [address] [place] [address] PCP - General Family Medicine 05/30/22 01/18/24 Joan Ayala MD [address] [place] [address] PCP - General Internal Medicine 01/19/24 documented as of this encounter
--- OUTSIDE RECORDS SUMMARY | 2024-07-28 13:44 | XMS_ITS | Encounter Summary ---
Author Organization [employer] Address [address] [facility] 7t [place] [address] Care Team Providers Care Extension Course Counselor Name Role Phone Breann Seay Primary Care Provider [phone] Joan Ayala MD Primary Care Provider + Reason for Visit * Reason Comments Med Refill Encounter Details Date Type Department Care Team (Late st Contact Info) Description 03/01/2023 Refill [facility] MED & PEDS [address] [place] [address] [facility] [address] [facility] [place] [address] Moderate persistent asthma without complication Social History [...] documented as of this encounter Care Teams Extension Course Counselor Relationship Specialty Start Date End Date Breann Seay FNP [address] [place] [address] PCP - General Family Medicine 05/30/22 01/18/24 Joan Ayala MD [address] [place] [address] PCP - General Internal Medicine 01/19/24 documented as of this encounter
--- OUTSIDE RECORDS SUMMARY | 2024-07-28 13:44 | XMS_ITS | Encounter Summary ---
Author Organization [facility] Address [address] [place] [address] 7t [place] [address] Care Team Providers Care Dancing Teacher Name Role Phone Kitty Sanders Primary Care Provider [phone] Breann Seay Primary Care Provider [phone] Joan Ayala MD Primary Care Provider + Reason for Visit * Reason Onset Date Comments Appointment Request 05/28/2022 Outgoing janice l to patient. No answer. Left message to call [facility] and ask to speak with Malinda. Pt is requesting to transfer care. Thanks. EG Encounter Details Date Type Department Care Team (Late st Contact Info) Description 05/28/2022 Refill [facility] MEDICINE [address] [place], [place] [phone] Kitty Sanders ANP [address] [place], [place] [phone] Fungal dermatitis (Primary Dx) Social History Tobacco Use Types [...] AM EST documented as of this encounter Miscellaneous Notes * Telephone Encounter - Amanda Mo RN - 06/04/2022 10:50 AM EST T/C placed to pt re below message. He states is no longer using betamethasone cream so is unsure why it says he requested it. He states he needs a refill on his ketoconazole shampoo that was Rxd by [facility] last month. Will queue to PCP. Please outreach pt to see how often using betamethasone - should ideally be used for less than 1-2weeks at a time. If no recent visit, please schedule for follow-up documented in this encounter Plan of Treatment Not on file documented as of this encounter Visit Diagnoses Diagnosis Fungal dermatitis- Primary Unspecified dermatomycosis documented in this encounter Care Teams Dancing Teacher Relationship Specialty Start Date End Date Kitty Sanders ANP [address] [place] [address] PCP - General Family Medicine 01/13/22 05/29/22 Breann Seay FNP [address] [place] [address] PCP - General Family Medicine 05/30/22 01/18/24 Joan Ayala MD [address] [place] [address] PCP - General Internal Medicine 01/19/24 documented as of this encounter
[2024-07-28 13:58] LABS: Alanine Aminotransferase 30 U/L (0-40); Alkaline Phosphatase 48 U/L (39-117); Anion Gap 11 (12-20); Aspartate Amino Transferase 26 U/L (5-37); Bilirubin Total 0.3 mg/dL (0.0-1.0); Blood Urea Nitrogen 15 mg/dL (9-16); Calcium 10.1 mg/dL (8.4-10.2); Carbon Dioxide 27 mmol/L (22-29); Chloride 103 mmol/L (96-108); Estimated Glomerular Filt Rate > 60; Glucose Random 81 mg/dL (60-115); Potassium 4.8 mmol/L (3.3-5.1); Sodium 136 mmol/L (135-145)
[2024-07-28 14:15] LABS: TSH reflex Free T4 1.48 uIU/mL (0.32-4.0)
[2024-07-29 03:54] LABS: Syphilis Screen Nonreactive (Nonreactive)
[2024-07-29 04:23] LABS: HIV AB/AG Nonreactive (Nonreactive); HIV Num 1 0.06 S/CO (0.00-0.99)
[2024-07-31 23:42] LABS: TS Negative Control Passed; TS Panel A 0; TS Panel B 0; TS Positive Control Passed; TSpotTB Negative (Negative)
== END 2024-07-28 10:47 | disposition home or self-care (01) ==
LOC: HO.HHCL 10:46
PROVIDERS: Visit Provider Internal Medicine
DX: R63.4 Abnormal weight loss (principal); N52.8 Other male erectile dysfunction; Z91.013 Allergy to seafood
CPT/HCPCS: 36415; 80053; 84443; 85025; 86481; 86780; 87389